=== PATIENT | male | born 1950 | race Caucasian/White ===

== ENCOUNTER → 2017-02-19 | Outpatient (CLI) | payer MEDICARE | END | disposition home or self-care (01) | LOC: GT 09:47 → LAB.O 09:47 → EDSTATUS 10:09 | PROVIDERS: ATTEND Internal Medicine | DX: J44.9 Chronic obstructive pulmonary disease, unspecified (principal); R09.02 Hypoxemia ==

== ENCOUNTER → 2017-02-23 | Outpatient (CLI) | payer MEDICARE | END | disposition home or self-care (01) | LOC: LAB.O 08:38 → GT 08:38 → EDSTATUS 10:49 | PROVIDERS: ATTEND Internal Medicine | DX: R13.0 Aphagia (principal); N39.0 Urinary tract infection, site not specified; B99.9 Unspecified infectious disease ==

== ENCOUNTER 2017-02-28 16:48 | Inpatient (IN) | payer MEDICARE ==
[2017-02-28] MEDS ORDERED: levoFLOXacin 750MG IV 750 MG in PREMIX BAG 1 BAG IVPB ONE (17:30)
[2017-02-28] MEDS ORDERED: SODIUM CHLORIDE 0.9% 1000ML 1,000 ML IVS PRN (17:30)
[2017-02-28] MEDS ORDERED: CEFEPIME 2 GM in SODIUM CHL 0.9% 50ML MIN-BAG+ 50 ML IVPB ONE (17:30)
[2017-02-28] MEDS ORDERED: LINEZOLID IV 600 MG in PREMIX BAG 1 BAG IVPB ONE (17:30)
[2017-02-28] MEDS ORDERED: CEFEPIME 2 GM VIAL IVPB ONE ×2 (17:58→23:24)
[2017-02-28] MEDS ORDERED: SODIUM CHL 0.9% 50ML MIN-BAG+ 50 ML IVPB ONE ×2 (17:58→23:24)
--- NOTE | 2017-02-28 18:21 | ED.PDOC ---
History of Present Illness - General Chief Complaint: Neuro Symptoms/Deficits Stated Complaint: altered mental status Time Seen by Provider: 02/28/17 17:29 Source: shelter records Exam Limitations: clinical condition - History of Present Illness Initial Comments: PT WAS SENT TO ER FOR EVALUATION AND TREATMENT OF RLL ASPIRATION PNEUMONIA AND AMS. HPI AND ROS LIMITED DUE TO PTS MENTAL STATUS. Timing/Duration: unsure Severity: moderate Allergies/Adverse Reactions: Allergies NO KNOWN ALLERGY Allergy (Verified 02/28/17 17:00) Review of Systems - Review of Systems Constitutional: States: see HPI EENTM: States: see HPI Respiratory: States: see HPI Cardiology: States: see HPI Gastrointestinal/Abdominal: States: see HPI Genitourinary: States: see HPI Musculoskeletal: States: see HPI Skin: States: see HPI Neurological: States: see HPI Endocrine: States: see HPI Hematologic/Lymphatic: States: see HPI Past Medical History (General) - Patient Medical History Hx Dementia: Yes Hx of COPD: Yes Hx Diabetes: Yes Hx Gastroesophageal Reflux: Yes Other Surgeries:: RIGHT BKA, LEFT AKA - Vaccination History Immunizations Comment: unknown - Social History Hx Tobacco Use: No Hx Alcohol Use: No Hx Substance Use: No Hx Substance Use Treatment: No Hx Depression: No - Activities of Daily Living Halfway/Assisted Living (if applicable):: [facility] Agency (if applicable):: None - Female History Patient is a Female of Child Bearing Age (10 -59 yrs old): No Patient : No Family Medical History - Family History Mother Family History: Unknown Physical Exam - Physical Exam General Appearance: Emaciated, Frail, No apparent distress Ears, Nose, Throat: hearing grossly normal Neck: normal inspection Respiratory: rhonchi - DIFFUSE Cardiovascular/Chest: regular rate, rhythm, no murmur Gastrointestinal/Abdominal: non tender, soft Back Exam: normal inspection Extremity: deformity - RIGHT BKA, LEFT AKA Neurologic: alert - CONFUSED Skin Exam: normal color, warm/dry Progress - EKG/XRAY/CT EKG: Sinus - 77BPM, NL AXIS, QTC 538MS, no ST T wave changes Xray Comments: RLL PNEUMONITIS PER RAD Departure - Departure Clinical Impression: Aspiration pneumonia, Acute confusion due to infection Disposition: Admit Patient Condition: Fair Departure Forms: ED Discharge - Pt. Copy, Patient Portal Self Enrollment Decision To Admit - Decistion To Admit Decision to Admit Reason: Admit from ER Decision to Admit Date: 02/28/17 - CASE DISCUSSED WITH MANJIT BLACKMON NP WHO AGREES TO ADMIT Decision to Admit Time: 19:21
--- NOTE | 2017-02-28 20:25 | HP ---
SUPERVISING PHYSICIAN: Parth Richardson MD CHIEF COMPLAINT: Altered mental status. HISTORY OF PRESENT ILLNESS: Mr. Hays is a 66-year-old, male patient resident of [facility]. He was initially sent to the Emergency Department for evaluation and treatment of a right lower lobe aspiration pneumonia that was noted on x-ray today and he also was noted to have acute mental status change. In initially in the Emergency Department, he was quite confused, but on examination at the time I was able to see the patient, he was near his baseline status. He does have a lengthy history. Initially, 4 to 5 years previously, he was treated for throat cancer with radiation and chemotherapy and he was treated to cure. At that time, he was living by himself with some caretakers who were not helping the patient as he is diabetic and as bilateral lower extremity amputations secondary to complications from diabetes. He ended up going to the Emergency Room within the last 3 to 4 weeks as he was having deterioration in his health and was found to have a right lower lobe pneumonia. He was then put in Intensive Care Unit and actually had to be intubated at some point. He was treated and improved clinically and was discharged to [facility] in [place] as he has a friend who is his power of estate attorney who lives in [place]. He had been in [facility] for about 1-1/2 weeks to today at which time an x-ray was repeated showing he had a continued right lower lobe pneumonia, which was noted to be aspiration per radiology interpretation. The patient also initially presented with some mild confusion. It also noted that his aspiration noted was first noted at [facility] by swallow study that confirmed he was having aspiration, at which point he was given a PEG tube and taken off all oral intake. His laboratory studies today showed normal white count of 6.1, hemoglobin 12.4, hematocrit 37.3, without left shift on differential. Chemistries did show a significantly low sodium of 122 with BUN 16, creatinine less than 0.04 with serum osmolality 246. Liver functions within normal limits. Troponin 0.05. BNP was within normal limits at 93. Glucose 91. Given his current symptomatology of acute mental status change with the low sodium and concerns for continued treatment for possible failure of recently being treated for right lower lobe pneumonia from aspiration, the patient will now be admitted to the Medical/Surgical Floor for further treatment. Prior to admission from the Emergency Room, he was started on antibiotic coverage to include vancomycin, Levaquin and cefepime, again, for concerns of an aspiration pneumonia, healthcare acquired, and possible pseudomonas as the patient had been previously intubated. PAST MEDICAL HISTORY: Limited from medical records and the patient's lack of knowledge of full history. 1. Type 2 diabetes mellitus currently on oral therapy. 2. History of previous throat cancer, treated to cure within the last 5 years. 3. History of recently being treated for right lower lobe aspiration pneumonia. PAST SURGICAL HISTORY: 1. Bilateral lower extremity amputation with [id number]-djx-calr amputation on the left and nwigx-zce-zbap amputation on the right. 2. Recent PEG tube placement. HOME MEDICATIONS: Please refer to electronic medical record for updated list from [facility] for current medications. ALLERGIES: NO KNOWN DRUG ALLERGIES. FAMILY HISTORY: Significant for heart disease, cancers. SOCIAL HISTORY: The patient is previously from [place] having recently moved to [facility]. He is disabled. He does have a history of smoking 1 to 2 packs per day having quit with his recent diagnosis of throat cancer. He denies any alcohol or illicit drug use. REVIEW OF SYSTEMS: CONSTITUTIONAL: As noted in history of present illness, initial acute mental status change and some confusion on admission. HEENT: Denies nasal congestion, ear pain. RESPIRATORY: Denies shortness of breath, cough, hemoptysis. CARDIOVASCULAR: As noted in history of present illness, acute mental status change, but denies any recent syncopal episodes. GASTROINTESTINAL: Positive for PEG tube placement. Denies nausea or vomiting or diarrhea. GENITOURINARY: Denies dysuria, hematuria, or other urinary symptoms. MUSCULOSKELETAL: He notes that he has some chronic phantom pains in both extremities from the amputations and has had some issues with possible infection of the lower stump. NEUROLOGIC: As noted in history of present illness, acute mental status change on admission with some confusion, showing improvement prior to admission to the Medical/Surgical Floor. PHYSICAL EXAMINATION: VITAL SIGNS: Temperature on admission 98.4. Pulse 80. Blood pressure 123/74. Respirations 20. Saturation 98% on room air. Admission weight 47.5 kg. GENERAL: The patient is very thin, appears to be somewhat malnourished, emaciated, frail, but appears to be in no acute distress. He is alert and very conversive on assessment. HEENT: Tympanic membranes clear bilaterally. Oropharynx is pink, mucous membranes are dry. No lesions noted. NECK: No jugular venous distention noted. CHEST: Lungs clear, diminished towards the bases. CARDIOVASCULAR: Regular rate and rhythm without any appreciable murmurs, gallops, or rubs. ABDOMEN: Soft, thin, nontender. Positive bowel sounds. EXTREMITIES: Right utjai-uqz-ttbb amputation, left zyyxi-suk-toxv amputation. NEUROLOGIC: The patient is alert and able to answer most of the questions on my examination. There were no notable neurological deficits. Cranial nerves II- XII are grossly intact. Facial features are symmetrical. Extraocular movements are within normal limits. INTEGUMENT: Skin warm and dry with some healing lesions to both bilateral extremities where amputations were performed. LABORATORY: White count 6.1, hemoglobin 12.4, hematocrit 36.3, platelet count 301,000, differential without shift. Urinalysis pending. Sodium low. Potassium normal at 4.6, BUN 16, creatinine less than 0.04. Glucose 89, serum osmolality 246. Liver functions within normal limits. Troponin 0.05, BNP 93. RADIOLOGY: EKG showed a sinus rhythm with no ST-T wave changes. X-ray showed a right lower lobe pneumonitis per radiology interpretation. ASSESSMENT: 1. Right lower lobe pneumonitis as noted on recent radiographic studies with a history of recently being treated at [facility] within the last month for similar diagnosis, felt to be healthcare acquired with concerns for aspiration pneumonia with the patient having been started on a PEG tube. 2. Acute mental status change on admission, unknown etiology, suspect possibly related to some dehydration that was short in duration as the patient was much more alert at time of admission. 3. History of throat cancer treatment to cure within the last 5 years. 4. History of chronic obstructive pulmonary disease in a chronic smoker with exacerbation secondary to aspiration pneumonia as noted on previous radiographic studies. 5. Type 2 diabetes mellitus on insulin, poorly controlled with complications resulting in bilateral lower extremity amputations. 6. Moderate hyponatremia, likely contributing to some of his confusional state, possibly secondary to poor nutritional intake from NG tube and excessive free water from daily PEG tube cleanings and flushings. PLAN: The patient will be admitted to the Medical/Surgical Floor for continued treatment and evaluation with antibiotics having been started in the Emergency Department to include Levaquin, vancomycin and cefepime. We will continue with aggressive antibiotic therapy until we can get some records from [facility] for comparison and repeat a chest x-ray in the morning. He will provided IV fluids, bronchodilators as needed and we will await a sputum if he is able to produce one to further target antibiotic therapy. We will get a nutritional consultation in regards to his scheduled feedings to help assist with his nutritional needs. Anticipate his length of stay to be 2 to 3 days. Until discharge, we will continue to monitor the patient closely and treat appropriately. #[id number] [facility]
[2017-02-28] MEDS ORDERED: VANCOMYCIN HCL INJ 1,000 MG VIAL IVPB ONE (21:00)
[2017-02-28] MEDS ORDERED: SODIUM CHLORIDE 0.9% 250ML 250 ML ONE (21:18)
[2017-02-28] MEDS ORDERED: SODIUM CHLORIDE 0.9% (FLUSH) 10 ML SYG IV PRN (21:32)
[2017-02-28] MEDS ORDERED: ACETAMINOPHEN 325 MG TAB PO PRN (21:32)
[2017-02-28] MEDS ORDERED: DEXTROSE 50% 25 GM/50 ML SYG IV PRN (21:32)
[2017-02-28] MEDS ORDERED: GLUCAGON INJ 1 MG VIAL SUBCU PRN (21:32)
[2017-02-28] MEDS ORDERED: ALBUTEROL SULFATE 2.5 MG/3 ML VIAL NEB PRN (21:32)
[2017-02-28] MEDS ORDERED: IV SET AND CAP CHANGE INJ INJ SCH (22:00)
[2017-03-01] MEDS: CEFEPIME 2 GM in SODIUM CHL 0.9% 50ML MIN-BAG+ 50 ML IVPB SCH ×2 (00:29→05:47)
[2017-03-01] MEDS: SODIUM CHLORIDE 0.9% 1000ML 1,000 ML IVS PRN ×2 (05:27→19:08)
[2017-03-01] MEDS ORDERED: SODIUM CHL 0.9% 50ML MIN-BAG+ 50 ML IVPB ONE (05:45)
[2017-03-01] MEDS ORDERED: CEFEPIME 2 GM VIAL IVPB ONE (05:45)
--- NOTE | 2017-03-01 07:29 | RAD ---
EXAM: Frontal chest X-ray obtained. CLINICAL INDICATION: Pneumonia COMPARISON: None FINDINGS: There is slight blunting of the right costophrenic angle. There is no focal airspace consolidation, left pleural effusion or pneumothorax. The cardiomediastinal silhouette and pulmonary vasculature appear within normal limits, given the technique. Visualized osseous structures appear intact and grossly unremarkable, given the nondedicated imaging. IMPRESSION: 1. No radiographic evidence for acute cardiopulmonary disease process. 2. Small right pleural effusion versus pleural thickening. Electronically signed by: Killian Francis MD 03/01/2017 7:28 AM CDT
[2017-03-01] MEDS: ALBUTEROL SULFATE 2.5 MG/3 ML VIAL NEB SCH ×4 (08:05→20:36)
[2017-03-01] MEDS ORDERED: SOD CHL 3% *HYPERTONIC* 500ML 300 ML IVS ONE (08:25)
[2017-03-01] MEDS: INSULIN LISPRO 100 UNITS/ML PEN SUBCU SCH ×4 (08:53→21:04)
[2017-03-01] MEDS ORDERED: SODIUM CHLORIDE 0.9% (FLUSH) 10 ML SYG IV SCH (09:00)
[2017-03-01] MEDS ORDERED: levoFLOXacin 500MG IV 500 MG in PREMIX BAG 1 BAG IVPB SCH (21:00)
--- NOTE | 2017-03-02 01:32 | PCM.CORE ---
Physician DVT/VTE - Nurse DVT Assessment & Total Each Risk Factor Represents 3 Points: Medical PT with Hx of DC, CHF, Severe infection/sepsis Each Risk Factor Represents 2 Points: Age 60-74, Malignancy (present/past), Confined to bed >72 hours Each Risk Factor Represents 1 Point: Medical PT at Bed Rest Each Risk Factor is 1 Point: Serious Lung disease (pnemonia <1month, COPD, emphysema,etc) DVT Assessment Score: 11 - 5 or more Very High Risk Treatments: Early Ambulation * - not option due to blka Pharmacological: Enoxaparin 40mg SQ Daily
[2017-03-02] MEDS ORDERED: ENOXAPARIN SODIUM 40 MG/0.4 ML SYG SUBCU SCH (02:00)
[2017-03-02] MEDS: SODIUM CHLORIDE 0.9% 1000ML 1,000 ML IVS PRN ×3 (06:17→19:47)
--- NOTE | 2017-03-02 07:24 | RAD ---
EXAM DESCRIPTION: Chest,1 View CLINICAL HISTORY: Aspiration pneumonia FINDINGS/ IMPRESSION: Comparison 03/01/2017. No significant interval change Faint infiltrate in the right mid lung, interstitial pneumonitis. Minimal opacity right costophrenic angle. There is blunted costophrenic angle which could be pleural fluid or pleural thickening. The left lung is clear Normal heart size with mildly tortuous aorta Electronically signed by: Deric Fernández MD 03/02/2017 7:23 AM CDT
--- NOTE | 2017-03-02 07:53 | PN ---
SUPERVISING PHYSICIAN: Parth Richardson MD DATE: 03/01/17 SUBJECTIVE: The patient is doing better today. He is back to his baseline mental status according to his friend and he feels much more alert today. He remains afebrile. OBJECTIVE: VITAL SIGNS: Temperature 98.0. Pulse 74. Blood pressure 120/71. Respirations 18. O2 saturation 98% on room air. I&Os not well monitored as he is incontinent. CHEST: Lungs clear bilaterally with just some decreased sounds noted towards the posterior aspects bilaterally. No rhonchi or wheezing noted. HEART: Regular rate and rhythm. ABDOMEN: Thin, soft, nontender. EXTREMITIES: No cyanosis, clubbing or edema. Bilateral lower extremity amputation sites show some irritation, but no obvious infection. NEUROLOGIC: Alert and oriented times three. He converses without any difficulty. There are no notable neurologic deficits. LABORATORY: White count remains normal at 6.1, hemoglobin 12, hematocrit 35.9, platelet count 250,000. Differential remains without a left shift. Chemistries show sodium 120 this morning with BUN 14, creatinine less than 0.4. Glucose 64 to 90. Serum osmolality 240, calcium 8.1. MICROBIOLOGY: Sputum culture has not been submitted yet. He did have blood cultures done, two, negative. RADIOLOGY: Repeat chest x-ray today per radiology interpretation, single view, shows no radiographic evidence of acute cardiopulmonary disease. There is notable right small pleural effusion versus pleural thickening. ASSESSMENT: 1. History of right lower lobe pneumonitis as noted on recent radiographic studies obtained at [facility], recently treated at [facility] within the last month and was felt to be healthcare acquired with concerns for aspiration pneumonia with the patient now having a PEG tube, showing radiographic stability. The patient remains afebrile. 2. Acute mental status change on admission, likely secondary to moderate hyponatremia with the patient showing improvement with intravenous therapy. 3. History of throat cancer treatment to cure within the last 5 years with radiation and chemotherapy. 4. History of chronic obstructive pulmonary disease in a chronic smoker with exacerbation secondary to aspiration pneumonia as noted on previous radiographic studies. 5. Type 2 diabetes mellitus on insulin, presently poorly controlled with complications resulting in bilateral lower extremity amputations. 6. Moderate hyponatremia, persistent despite intravenous therapy with normal saline, likely contributing to some of his confusional state, felt to be possibly secondary to mismanagement of his free water intake from his PEG tube and nutritional status. PLAN: At this point, has shown a decrease in his sodium. Therefore, we will treat him with some hypertonic saline 3% with 300 mL to run over 6 hours with repeat BNP after completion. Once that is complete, we will continue with IV fluids with normal saline at 75 mL per hour rate. Given that he has shown no radiographic evidence this morning of pneumonia and remains afebrile with saturation 98% on room air and clinically shows to be stable, we have opted to hold his antibiotic therapy at this time for close monitor as it seems that most of his symptoms are related to hyponatremia and poor nutritional status. We are awaiting a consultation from nutritional services to assist in ongoing nutritional needs. Anticipate possible discharge tomorrow or the next day. Until then, we will continue to monitor the patient closely and treat appropriately. #[id number] [facility]
[2017-03-02] MEDS: ALBUTEROL SULFATE 2.5 MG/3 ML VIAL NEB SCH ×4 (08:40→20:31)
[2017-03-02] MEDS: INSULIN LISPRO 100 UNITS/ML PEN SUBCU SCH ×4 (09:38→21:08)
[2017-03-02] MEDS: ENOXAPARIN SODIUM 40 MG/0.4 ML SYG SUBCU SCH (12:19)
[2017-03-03] MEDS: SODIUM CHLORIDE 0.9% 1000ML 1,000 ML IVS PRN (02:18)
[2017-03-03] MEDS: INSULIN LISPRO 100 UNITS/ML PEN SUBCU SCH ×2 (07:55→12:13)
[2017-03-03] MEDS: ALBUTEROL SULFATE 2.5 MG/3 ML VIAL NEB SCH ×2 (08:39→12:20)
[2017-03-03] MEDS: ENOXAPARIN SODIUM 40 MG/0.4 ML SYG SUBCU SCH (09:02)
--- NOTE | 2017-03-03 09:42 | PN ---
SUPERVISING PHYSICIAN: Oswaldo Kelly MD DATE: 03/02/17 SUBJECTIVE: The patient is feeling better today. He is alert, he has had no nausea, vomiting, diarrhea. He has had no cough or any complaints of shortness of breath.. OBJECTIVE: VITAL SIGNS: Temperature 97.3 Pulse 82. Blood pressure 110/75. Respirations 18. O2 saturation 93% on room air. I&Os show positive balance of 470 with 1695 in and 425 out. He has had one bowel movement. Weight is 47.5 kg. GENERAL: The patient appears to be in no distress. He is alert and conversive. CHEST: Lungs clear to auscultation bilaterally with just some diminished sounds noted towards to the right posterior aspect. No rhonchi, wheezing or rales are heart.. HEART: Regular rate and rhythm. ABDOMEN: Soft, nontender. Positive bowel sounds. EXTREMITIES: Bilateral lower extremity amputations but no obvious cyanosis or edema. There are no signs of infection.in the distal portions of the stumps. NEUROLOGIC: Alert and oriented times three. He converses without any significant difficulty.. LABORATORY: White count 4.1, hemoglobin 11.7, hematocrit 34.9, platelet count 266,000. Differential shows to be within normal limits. Chemistries show continued low sodium at 128 with chloride of 98. BUN 11, creatinine less than 0.4. Glucose has been 83 to 112. Calcium 8.8. Liver functions within normal limits. MICROBIOLOGY: Blood cultures x2 show no growth at 48 hours. RADIOLOGY: Chest x-ray, single view today shows no significant change as noted per radiology interpretation. There is note of a faint infiltrate in the right mid lung, interstitial pneumonitis. Minimal opacity, right costophrenic angle. Left lung is clear. ASSESSMENT: 1. History of recent right lower lobe pneumonitis as noted on radiographic studies at [facility], having been recently treated to completion at [facility] in the last month which was felt to be healthcare acquired with initial concerns for aspiration pneumonia with the patient having a PEG tube, showing radiographic stability. The patient remains afebrile. 2. Acute mental status change on admission, felt to be secondary to moderate hyponatremia with the patient showing some improvement after initiation of intravenous therapy. 3. History of throat cancer treatment to cure within the last 5 years with radiation and chemotherapy. 4. History of chronic obstructive pulmonary disease in a chronic smoker with exacerbation secondary to aspiration pneumonia as noted on previous radiographic studies. 5. Type 2 diabetes mellitus on insulin, poorly controlled with complications resulting in bilateral lower extremity amputations. 6. Moderate hyponatremia, persistent despite hypertonic saline replacement, felt to be contributing to his initial confusional state upon admission. This could be secondary to poor management of his free water intake from.his PEG tube and nutritional status is lacking. PLAN: Will plan to control with supervisor costuming in regards to tube feedings and follow recommendations per assessment. We need to insure the patient maintains a position of 30 to 45 degrees during and after feedings to prevent aspiration and monitor caloric and free water intake closely. Anticipate possible discharge tomorrow with reevaluation clinically and repeat laboratory studies as patient continues to show no signs related to previous aspiration pneumonitis ;. Until discharge, we will follow the patient closely and treat appropriately. #[id number] [facility]
[2017-03-03 10:13] VITALS: BP 107/71; TEMP 97.7
[2017-03-03] MEDS ORDERED: NON-FORMULARY MEDICATION 1 EA MIS GT SCH (12:00)
[2017-03-03 16:53] VITALS: O2SAT 96
--- NOTE | 2017-03-05 13:22 | DS ---
SUPERVISING PHYSICIAN: Oswaldo Kelly MD DISCHARGE DIAGNOSIS: 1. History of recent right lower lobe pneumonitis as noted on radiographic studies at [facility] having recently been treated to completion at [facility] within the last month, which was felt to be healthcare acquired with initial concerns for aspiration pneumonia with the patient having a PEG tube, showing radiographic stability on admission with the patient being afebrile. 2. Acute mental status change on admission, felt to be secondary to moderate hyponatremia with the patient showing some improvement after initiation of intravenous therapy, felt to be secondary to excessive free water intake while giving PEG tube feedings. 3. History of throat cancer treatment to cure within the last 5 years with radiation and chemotherapy. 4. History of chronic obstructive pulmonary disease in a chronic smoker with exacerbation secondary to aspiration pneumonia prior to admission and noted on previous radiographic studies in the outpatient setting, stable during admission. 5. Type 2 diabetes mellitus on insulin, poorly controlled with complications resulting in bilateral lower extremity amputations. 6. Moderate hyponatremia, persistent despite hypertonic saline replacement, felt to be contributing to his initial confusional state upon admission. This is felt to be secondary to poor management of his free water intake from.his PEG tube and nutritional status is lacking. HISTORY OF PRESENT ILLNESS: Mr. Hays is a 66-year-old, male patient resident of [facility]. He was initially sent to the Emergency Department for evaluation and treatment of a right lower lobe aspiration pneumonia that was noted on x-ray the day of admission and he also was noted to have acute mental status change. In initially in the Emergency Department, he was quite confused, but on examination at the time I was able to see the patient , he was near his baseline status. He does have a lengthy history. Initially, 4 to 5 years previously, he was treated for throat cancer with radiation and chemotherapy and he was treated to cure. At that time, he was living by himself with some caretakers who were not helping the patient as he is diabetic and as bilateral lower extremity amputations secondary to complications from diabetes. He ended up going to the Emergency Room within the last 3 to 4 weeks as he was having deterioration in his health and was found to have a right lower lobe pneumonia. He was then put in Intensive Care Unit and actually had to be intubated at some point. He was treated and improved clinically and was discharged to [facility] in [place] as he has a friend who is his power of attorney general who lives in [place]. He had been in [facility] for about 1-1/2 weeks to the day of admission at which time an x-ray was repeated showing he had a continued right lower lobe pneumonia, which was noted to be aspiration per radiology interpretation. The patient also initially presented with some mild confusion. It also was noted that his aspiration noted was first noted at [facility] by swallow study that confirmed he was having aspiration, at which point he was given a PEG tube and taken off all oral intake. His laboratory studies at time fo admission showed normal white count of 6.1, hemoglobin 12.4, hematocrit 37.3, without left shift on differential. Chemistries did show a significantly low sodium of 122 with BUN 16, creatinine less than 0.04 with serum osmolality 246. Liver functions within normal limits. Troponin 0.05. BNP was within normal limits at 93. Glucose 91. Given his current symptomatology of acute mental status change with the low sodium and concerns for continued treatment for possible failure of recently being treated for right lower lobe pneumonia from aspiration, the patient was admitted to the Medical/Surgical Floor for further treatment. Prior to admission from the Emergency Room, he was started on antibiotic coverage to include vancomycin, Levaquin and cefepime, again, for concerns of an aspiration pneumonia, healthcare acquired, and possible pseudomonas as the patient had been previously intubated. He was admitted in stable condition. LABORATORY: White count on admission was 6.1, at discharge was 3.6. Platelet count 268,000, differential within normal limits. Hemoglobin and hematocrit were stable at 12.6 and 37.8 at discharge. Chemistries initially showed sodium 122 with potassium 4.6, BUN 16, creatinine less than 0.46, initial serum osmolality 246. Liver functions within normal limits. Troponin 0.05, BNP 93. TSH normal at 3.07. After treatment and at time of discharge, sodium had near normalized to 130, potassium 3.9, BUN 6, creatinine less than 0.4. Urinalysis on admission was within normal limits. MICROBIOLOGY: Blood cultures remained negative after 4 days. No sputum culture was ever collected. RADIOLOGY: Chest x-ray in the Emergency Department prior to admission per radiology interpretation showed no radiographic evidence of acute cardiopulmonary disease. There was noted of a small right pleural effusion versus pleural thickening. Repeat chest x-ray prior to discharge on 03/02/17 per radiology interpretation again showed faint infiltrate in the right mid lung and interstitial pneumonitis, minimal opacity in the right costovertebral angle. There was again noted pleural fluid or pleural thickening. Left lung was clear. HOSPITAL COURSE: Mr. Hays was admitted from the Emergency Room as noted in history of present illness for concern for aspiration pneumonia and low sodium resulting in acute mental status change. On initial presentation to the Emergency Department, he was confused, but prior to admission to the Medical/ Surgical Floor, the patient was nearly back to his baseline mental status. He remained stable and was initially started on treatment in the Emergency Department with antibiotics for concerns for underlying pneumonia as noted. However, was clinically stable and it was felt that his acute mental status change was related to his low sodium and poor nutritional intake and excessive free water intake through PEG tube feedings. He was stopped on antibiotics and continued to do well clinically as well as improved in his sodium. Scrap [employer]er consultation was completed and his nutritional intake was improved. On the date of discharge, he was back to his baseline mental status and was doing well clinically enough to be [facility]. PLAN: Mr. Hays was discharged on 03/03/17 back to [facility] to have close clinical followup with his primary care provider, Dr. Power in 5 to 7 days. He is to resume his home medications as instructed and continue his previous care plan with note of tube feedings goals to ensure good nutritional intake and avoid excessive free water while preventing dehydration and to maintain better sodium levels. He was also to be rotated on a regular basis to prevent any skin breakdown. He is to return to the hospital should he have any increase in his symptoms or worsening of his symptoms. There were no new medications prescribed at discharge. He was to continue all previous nutrition , diet with tube feeding goals of Glucerna 1.5 237 mL q.i.d. which would provide 1422 calories and 78 grams of protein. Given the patient's low sodium levels previously, limit the patient's free fluid to Glucerna plus water flushes to less than 2000 mL, preferably 1500 to 2000 mL, Glucerna included 1.5 q.i.d. will meet 50% of the water replacement if he tolerates all his tube feedings 100%. Residuals were to be checked and call physician as per their protocol. The patient's position was to be 30 to 45 degrees during and after feedings to prevent aspiration. Please return to the Emergency Room if he has any concerning symptoms. At discharge, activities were as per physical therapy if tolerated by wheelchair only and diet as above noted. Condition was stable at discharge. #[id number] [facility]
== END 2017-03-03 14:15 | disposition home or self-care (01) | DRG 177 ==
LOC: ER 16:48 → MS 20:24
PROVIDERS: ADMIT Nurse Practitioner Family; ATTEND Nurse Practitioner Family
DX: J69.0 Pneumonitis due to inhalation of food and vomit (principal); E41 Nutritional marasmus; E87.1 Hypo-osmolality and hyponatremia; E86.0 Dehydration; E11.65 Type 2 diabetes mellitus with hyperglycemia; J44.9 Chronic obstructive pulmonary disease, unspecified; Z85.01 Personal history of malignant neoplasm of esophagus; Z92.3 Personal history of irradiation; Z92.21 Personal history of antineoplastic chemotherapy; Z89.612 Acquired absence of left leg above knee; Z89.511 Acquired absence of right leg below knee; Z93.1 Gastrostomy status; Z87.891 Personal history of nicotine dependence; Z79.4 Long term (current) use of insulin; Z66 Do not resuscitate; Z68.20 Body mass index [BMI] 20.0-20.9, adult

== ENCOUNTER → 2017-04-23 | Outpatient (CLI) | payer MEDICARE | END | disposition home or self-care (01) | LOC: LAB.O 06:30 | PROVIDERS: ATTEND Internal Medicine | DX: J44.9 Chronic obstructive pulmonary disease, unspecified (principal); E11.9 Type 2 diabetes mellitus without complications; R41.81 Age-related cognitive decline; I50.9 Heart failure, unspecified | CPT/HCPCS: 36415; 80048; 80076; P9603 ==

== ENCOUNTER → 2017-05-30 | Outpatient (CLI) | payer MEDICARE | END | disposition home or self-care (01) | LOC: GT 07:54 | PROVIDERS: ATTEND Internal Medicine | DX: E11.9 Type 2 diabetes mellitus without complications (principal) | CPT/HCPCS: 36415; 83036; P9603 ==

== ENCOUNTER → 2017-06-22 | Outpatient (CLI) | payer MEDICARE | END | disposition home or self-care (01) | LOC: GT 09:02 | PROVIDERS: ATTEND Internal Medicine | DX: E87.1 Hypo-osmolality and hyponatremia (principal) ==

== ENCOUNTER → 2017-06-29 | Outpatient (CLI) | payer MEDICARE | END | disposition home or self-care (01) | LOC: GT 05:57 | PROVIDERS: ATTEND Internal Medicine | DX: E87.1 Hypo-osmolality and hyponatremia (principal) | CPT/HCPCS: 36415; 80048; P9603 ==

== ENCOUNTER → 2017-08-29 | Outpatient (CLI) | payer MEDICARE | END | disposition home or self-care (01) | LOC: GT 06:27 | PROVIDERS: ATTEND Internal Medicine | DX: E78.5 Hyperlipidemia, unspecified (principal); E11.9 Type 2 diabetes mellitus without complications ==

== ENCOUNTER → 2017-09-06 | Outpatient (CLI) | payer MEDICARE | END | disposition home or self-care (01) | LOC: GT 14:40 | PROVIDERS: ATTEND Internal Medicine | DX: J44.9 Chronic obstructive pulmonary disease, unspecified (principal); E11.9 Type 2 diabetes mellitus without complications; E87.1 Hypo-osmolality and hyponatremia ==

== ENCOUNTER → 2017-09-12 | Outpatient (CLI) | payer MEDICARE | END | disposition home or self-care (01) | LOC: GT 05:52 | PROVIDERS: ATTEND Internal Medicine | DX: E87.1 Hypo-osmolality and hyponatremia (principal); E11.9 Type 2 diabetes mellitus without complications ==

== ENCOUNTER → 2017-11-28 | Outpatient (CLI) | payer MEDICARE | END | disposition home or self-care (01) | LOC: GT 07:10 | PROVIDERS: ATTEND Internal Medicine | DX: E11.9 Type 2 diabetes mellitus without complications (principal) ==

== ENCOUNTER → 2017-12-31 | Outpatient (CLI) | payer MEDICARE | LOC: GT 06:08 | PROVIDERS: ATTEND Internal Medicine | DX: E78.5 Hyperlipidemia, unspecified (principal); E87.1 Hypo-osmolality and hyponatremia; E56.9 Vitamin deficiency, unspecified; E11.9 Type 2 diabetes mellitus without complications ==

== ENCOUNTER → 2018-02-01 | Outpatient (CLI) | payer MEDICARE | LOC: GT 06:30 | PROVIDERS: ATTEND Internal Medicine | DX: E11.9 Type 2 diabetes mellitus without complications (principal); E56.9 Vitamin deficiency, unspecified ==

== ENCOUNTER → 2018-02-27 | Outpatient (CLI) | payer MEDICARE | LOC: GT 07:39 | PROVIDERS: ATTEND Internal Medicine | DX: E11.9 Type 2 diabetes mellitus without complications (principal); E78.5 Hyperlipidemia, unspecified ==

== ENCOUNTER 2018-05-12 20:22 | Inpatient (IN) | payer MEDICARE, MEDICAID ==
--- NOTE | 2018-05-12 20:40 | ED.PDOC ---
History of Present Illness - General Chief Complaint: Respiratory Problem Stated Complaint: possible aspiration Time Seen by Provider: 05/12/18 20:32 Source: patient Exam Limitations: no limitations - History of Present Illness Initial Comments: Patient presents with increasing dyspnea for two days. He says it started yesterday. He has had an increasing cough for the last two days. He is unsure if it has been productive or not. He has a history of aspiration pneumonia. No other complaints. EMS stated that his oxygen saturations were 59%. Patient does not normally use oxygen. Timing/Duration: 24 hours Severity: moderate Improving Factors: nothing Worsening Factors: nothing Associated Symptoms: shortness of breath Allergies/Adverse Reactions: Allergies NO KNOWN ALLERGY Allergy (Verified 05/12/18 20:53) Home Medications: Ambulatory Orders Ascorbic Acid [Vitamin C] 500 mg GT BID 02/28/17 DULoxetine HCL [Cymbalta] 30 mg GT BEDTIME 02/28/17 Enoxaparin Sodium [Lovenox] 40 mg SC BEDTIME 02/28/17 Esomeprazole Magnesium [Nexium] 40 mg GT DAILY 02/28/17 Infant Foods [Water Oral] 50 ml GT .BEFORE&AFTERFEEDING 02/28/17 Insulin Aspart [Novolog Flexpen] 0 units SUBCU Q6H PRN 02/28/17 Levofloxacin [Levaquin] 500 mg GT DAILY 02/28/17 Metformin HCl 500 mg GT BID 02/28/17 Multiple Vitamins W/ Minerals [Multivitamin Adults] 1 tab GT DAILY 02/28/17 Nutritional Supplements [Glucerna 1.5 Bo] 237 ml GT .0800,1600,0000 02/28/17 Nutritional Supplements [Promod] 30 ml GT BID 02/28/17 Nystatin (Mouth-Throat) [Nystatin] 10 ml PO QID 02/28/17 Simvastatin 10 mg GT BEDTIME 02/28/17 Sodium Chloride 1 gm GT BID 02/28/17 Review of Systems - Review of Systems Constitutional: States: no symptoms reported EENTM: States: no symptoms reported Respiratory: States: see HPI Cardiology: States: no symptoms reported Gastrointestinal/Abdominal: States: no symptoms reported Genitourinary: States: no symptoms reported Musculoskeletal: States: no symptoms reported Skin: States: no symptoms reported Neurological: States: no symptoms reported Endocrine: States: see HPI Hematologic/Lymphatic: States: no symptoms reported Past Medical History (General) - Patient Medical History Hx Seizures: No Hx Stroke: No Hx Dementia: Yes Hx Asthma: No Hx of COPD: Yes Hx Congestive Heart Failure: No Hx Pacemaker: No Hx Hypertension: No Hx Diabetes: Yes Hx Gastroesophageal Reflux: Yes Hx MRSA: No - Social History Hx Tobacco Use: No Hx Alcohol Use: No Hx Substance Use: No Hx Substance Use Treatment: No Hx Depression: No Hx Physical Abuse: No Hx Emotional Abuse: No - Female History Patient : No Family Medical History - Family History Mother Family History: Unknown Physical Exam - Physical Exam General Appearance: Ill Appearing Eye Exam: bilateral normal Ears, Nose, Throat: normal ENT inspection Neck: non-tender, full range of motion, supple Respiratory: rhonchi - upper lung krishna Cardiovascular/Chest: regular rate, rhythm, no edema Gastrointestinal/Abdominal: normal bowel sounds, non tender, soft Back Exam: no CVA tenderness Extremity: other - Right BKA, Left AKA 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 Initial lactic acid was 2.6. After 1 1/2 liters NS it was 1.4. wbc 23.5. Patient has a GT but he admitted to drinking Dr. Lee today and possibly aspirating it. He was started an Ampicillin/ Sulbactam 3 grams IV x one and admitted to inpatient for aspirations pneumonia. After a breathing treatment that EMS gave him, he maintained 97% on 2L by NC. Laboratory Tests 05/12/18 05/12/18 05/12/18 20:11 20:11 20:11 WBC 23.5 H* RBC 4.74 Hgb 13.5 L Hct 41.3 L MCV 87.0 MCH 28.4 MCHC 32.6 L RDW 19.8 H Plt Count 277 MPV 9.1 Absolute Neuts (auto) Not Reportable Absolute Lymphs (auto) Not Reportable Absolute Monos (auto) Not Reportable Absolute Eos (auto) Not Reportable Neutrophils % Not Reportable Neutrophils % (Manual) 70.0 Lymphocytes % Not Reportable Lymphocytes % (Manual) 4.0 Monocytes % Not Reportable Monocytes % (Manual) 4.0 Eosinophils % Not Reportable Basophils % Not Reportable Band Neutrophils 22.0 H* Platelet Estimate Normal Normal RBC Morphology Normal rbc morph Sodium 135 Potassium 4.1 Chloride 100 L Carbon Dioxide 25 Anion Gap 14.1 BUN 27 H Creatinine 0.62 BUN/Creatinine Ratio 43.5 H Random Glucose 141 H Serum Osmolality 277.6 Lactic Acid Calcium 8.7 Total Bilirubin 0.3 AST 20 ALT 13 Alkaline Phosphatase 115 Creatine Kinase 49 CK-MB (CK-2) 3.9 CK-MB (CK-2) % Not Reportable Troponin I 0.11 H* B-Natriuretic Peptide 258.0 H* Serum Total Protein 7.5 Albumin 3.3 Globulin 4.2 H Albumin/Globulin Ratio 0.8 L 05/12/18 05/12/18 21:10 22:45 WBC RBC Hgb Hct MCV MCH MCHC RDW Plt Count MPV Absolute Neuts (auto) Absolute Lymphs (auto) Absolute Monos (auto) Absolute Eos (auto) Neutrophils % Neutrophils % (Manual) Lymphocytes % Lymphocytes % (Manual) Monocytes % Monocytes % (Manual) Eosinophils % Basophils % Band Neutrophils Platelet Estimate Normal RBC Morphology Sodium Potassium Chloride Carbon Dioxide Anion Gap BUN Creatinine BUN/Creatinine Ratio Random Glucose Serum Osmolality Lactic Acid 2.6 H* 1.4 Calcium Total Bilirubin AST ALT Alkaline Phosphatase Creatine Kinase CK-MB (CK-2) CK-MB (CK-2) % Troponin I B-Natriuretic Peptide Serum Total Protein Albumin Globulin Albumin/Globulin Ratio 05/12/18 23:22 Departure - Departure Clinical Impression: Aspiration pneumonia Disposition: Admit Patient Condition: Fair Departure Forms: ED Discharge - Pt. Copy, Patient Portal Self Enrollment Diet: other - as per hospitalist Activity: other - patient is non-ambulatory Referrals: SKYE MENDEZ [Primary Care Provider] - 1-2 Weeks Home Medications: Ambulatory Orders Ascorbic Acid [Vitamin C] 500 mg GT BID 02/28/17 DULoxetine HCL [Cymbalta] 30 mg GT BEDTIME 02/28/17 Enoxaparin Sodium [Lovenox] 40 mg SC BEDTIME 02/28/17 Esomeprazole Magnesium [Nexium] 40 mg GT DAILY 02/28/17 Foods [Water Oral] 50 ml GT .BEFORE&AFTERFEEDING 02/28/17 Insulin Aspart [Novolog Flexpen] 0 units SUBCU Q6H PRN 02/28/17 Levofloxacin [Levaquin] 500 mg GT DAILY 02/28/17 Metformin HCl 500 mg GT BID 02/28/17 Multiple Vitamins W/ Minerals [Multivitamin Adults] 1 tab GT DAILY 02/28/17 Nutritional Supplements [Glucerna 1.5 Bo] 237 ml GT .0800,1600,0000 02/28/17 Nutritional Supplements [Promod] 30 ml GT BID 02/28/17 Nystatin (Mouth-Throat) [Nystatin] 10 ml PO QID 02/28/17 Simvastatin 10 mg GT BEDTIME 02/28/17 Sodium Chloride 1 gm GT BID 02/28/17
[2018-05-12] MEDS ORDERED: SODIUM CHLORIDE 0.9% 1000ML 1,000 ML IVS ONE (21:26)
--- NOTE | 2018-05-12 21:28 | RAD ---
EXAM DESCRIPTION: Chest,1 View CLINICAL HISTORY: rhonchi, hypoxia COMPARISON: None. FINDINGS: There is consolidation at the left lung base and bilateral interstitial thickening. Atelectasis involves the right lung base. Cardiac silhouette is within normal limits. IMPRESSION: Left lung consolidation. Electronically signed by: Klever Fernandez 05/12/2018 9:27 PM CDT
[2018-05-12] MEDS ORDERED: AMPICILLIN & SULBACTAM SODIUM 3 GM in SODIUM CHL 0.9% 100ML MINI-BAG 100 ML IVPB ONE (21:32)
[2018-05-12] MEDS ORDERED: AMPICILLIN & SULBACTAM SODIUM 3 GM VIAL ONE (21:47)
[2018-05-12] MEDS ORDERED: SODIUM CHL 0.9% 100ML MINI-BAG 100 ML IVPB ONE (21:47)
--- NOTE | 2018-05-12 23:24 | HP ---
SUPERVISING PHYSICIAN: Deric Richardson MD CHIEF COMPLAINT: Shortness of breath. HISTORY OF PRESENT ILLNESS: Mr. Hays is a 67-year-old, male patient resident of [facility]. He presented to the Emergency Department secondary to increasing dyspnea over the last 48 hours. He also noted he has been having an increasing cough for the last few days but was unable to produce any significant sputum. He has a significant history including aspiration pneumonia within the last year and utilizes a G-tube for nutritional intake and apparently has per family does drink a Dr. Pepper periodically which he sometimes aspirates. On arrival by EMS, noted oxygen saturation were 59% and the patient does not normally utilize oxygen. He was brought to the Emergency Room for further evaluation and on initial laboratory studies showed he had a leukocytosis of 20,500 with an increase in bands at 22%. His chemistries showed normal electrolytes, normal liver functions. Creatinine was 0.62 He had a slightly elevated BNP at 258 but he also had a troponin that was elevated at 0.11. His initial lactic acid was 2.6, after fluids and initiation of antibiotics in the Emergency Room prior to admission had decreased to 1.4. The patient in the Emergency Room was denying any chest pain. An EKG completed showed no ST or T-wave changes. His urine was within normal limits. Radiographic studies per radiology interpretation showed on single-view chest, left lung consolidation. He was then started on protocol for pneumonia with concerns of aspiration and initially given a dose of Zosyn after blood cultures were collected, sputum was also collected and he was started on some IV fluids and found to be hemodynamically stable and therefore is now being to be admitted for of left-sided pneumonia with concerns for aspiration and health care associated pneumonia as the patient resides in a long-term care facility. He was admitted in stable condition. PAST MEDICAL HISTORY: 1. Type 2 diabetes mellitus, not currently on any medication. 2. History of previous throat cancer, treated to cure within the 5 years requiring placement of a G-tube. 3. History of recently aspiration pneumonia. PAST SURGICAL HISTORY: 1. Bilateral lower extremity amputation with [id number] amputation on the left and below-knee amputation on the right. 2. PEG tube placement. CURRENT MEDICATIONS: 1. Ibuprofen 600 mg per G-tube b.i.d. 2. Artificial tears, one drop in both eyes b.i.d. 3. Nexium 40 mg per G-tube in the morning. 4. Paxil 30 mg per G-tube at bedtime. 5. Melatonin 60 mg G-tube at bedtime. 6. foods or water, oral 50 mLs G-tube before and after feedings. 7. Sodium chloride 3 grams G-tube b.i.d. 8. Vitamin C 500 mg G-tube b.i.d. 9. Multivitamins with minerals, one tablet daily per G-tube. 10. Probiotic 1 tablet daily per G-tube. 11. Boost 100 calories Smart, tube feedings p.r.n. 12. Globally 100 mg q.i.d. 13. Glucerna 1.5 calories 237 mL 3 times a day. ALLERGIES: BACTRIM. FAMILY HISTORY: Significant for heart disease and cancer. SOCIAL HISTORY: The patient currently lives at [facility]. He is disabled. He has a history of smoking 1 to 2 packs of cigarettes per day. He quit after recently diagnosis in the last year of throat cancer. He denies any alcohol or illicit drug use. REVIEW OF SYSTEMS: CONSTITUTIONAL: Denies any mental status change, fevers or chills. HEENT: No noted nasal congestion, earache, sore throat. RESPIRATORY: As noted in history of present illness. CARDIOVASCULAR: NO reported chest pain, palpitation or syncopal episodes. GASTROINTESTINAL: History of G-tub in place. No reported nausea or vomiting or diarrhea, constipation pr administer pain. INTEGUMENT: No rashes or skin breakdown. NEUROLOGICAL: No reported ataxia, seizures, syncopal episodes or other neurological deficits. PHYSICAL EXAMINATION: VITAL SIGNS: Temperature on admission 99.6 in the Emergency Room with a pulse of 105. Blood initially was 91/58. Respirations 24 and labored. Saturation 984 on simple face mask at 10l liters. Admission weight 61.4 kg. GENERAL: The patient is ill-appearing, fairly unkempt but alert. HEENT: Tympanic membranes clear bilaterally. Oropharynx is pink and moist without any lesions. are dry. NECK: Supple, non-tender who was transferred full range of motion. No jugular venous distention. CHEST: Diffuse rhonchi heard through all lung krishna, more prominent in the right and left upper lobes. No wheezing noted. CARDIOVASCULAR: Heart tones were normal rate and rhythm with no appreciable murmurs, gallops, or rubs. ABDOMEN: Soft, nontender. Positive bowel sounds with the G-tube in place with somewhat being clean and dry. No signs of infection. EXTREMITIES: Right grhqj-mgv-ilvr amputation, left [id number] amputation. NEUROLOGIC: Cranial nerves II-XII are grossly intact. Facial features are symmetrical. Extraocular movements are within normal limits. There is no notable nystagmus. He is alert and oriented x 3. SKIN: [place], warm, dry with no lesions or rashes. There are decubiti noted. LABORATORY: CBC showed a white count of 23,500, hemoglobin 13.5, hematocrit 41.1 with platelet count of 277,000. Differential did show a left shift and bandemia with 22% bands. Initial chemistries on admission showed normal electrolytes, potassium 4.1, BUN 27, creatinine 0.62. Lactic initially was 2.6. After fluids, repeat was down to 1.4. Liver functions all showed to be within normal limits. BNP was slightly elevated at 258 with troponin being elevated at 0.11. Urinalysis was within normal limits. MICROBIOLOGY: Sputum culture is pending. Blood cultures pending. RADIOLOGY: Initial chest x-ray in the Emergency Department per radiology interpretation of single view chest showed left lung consolidation. Initial 12-lead EKG showed sinus rhythm with no ST or T-wave changes and the patient was without any complaints of chest pain. ASSESSMENT: 1. Left lower lobe pneumonia with concerns for healthcare acquired with patient living in long-term care facility and concerns for aspiration pneumonia with the patient having PEG tube. 2. Leukocytosis secondary to #1. 3. Systemic inflammatory response with leukocytosis, elevated lactic acid, bandemia and infectious source pneumonia, left lower lobe. 4. Elevated troponins with no reported chest pain, no acute changes of EKG, questionable stress response versus a non-STEMI. 5. History of chronic obstructive pulmonary disease in a chronic smoker with an exacerbation secondary to aspiration pneumonia versus healthcare acquired as noted in #1. 6. Type 2 diabetes mellitus, currently on dietary control. PLAN: We are going to admit the patient for treatment of left lower lobe pneumonia with concerns for aspiration pneumonia versus healthcare acquired. Given his history of aspiration in the past as well as residing at [facility], I will start him on vancomycin per protocol, Levaquin and Cefepime and a dose according to renal function. He will be on IV fluids with normal saline with 20 of potassium at 80 an hour until we fan resume his tube feedings. We will need to contact Madeline Staton in regards to tube feedings. We will have him on aggressive pulmonary hygiene with q.i.d. Duoneb treatments and obtain a sputum for culture and await that result to help further target antibiotic therapy. He will be on DVT prophylaxis as well as PPI for gastric protection. We will also start him on some Align per G-tube. He will be on sliding scale per protocol every 6 hours accy checks until he is resumed on his G-tube feedings. We will continue to watch her labs closely and anticipate length of stay to be 2 to 3 days. Until patient is clinically stable, we will continue to monitor and treat appropriately. I did speak with the patient with regards to his resuscitation status and he wishes to remain at [facility]. I discussed with him elevated troponin but has no chest pain and is adamant about not seeking any further treatment in regards to the troponin and does not want to be transferred at this time. Again, I did discuss with him that should he continue to show a decline and need higher level care then he will need to be transferred or he would have to change his code status and he understands this and will address accordingly. Again, Until discharge, we will continue to monitor him closely and treat appropriately. [facility][id number] [facility]
[2018-05-13] MEDS ORDERED: SODIUM CHLORIDE 0.9% (FLUSH) 10 ML SYG IV PRN (00:47)
[2018-05-13] MEDS ORDERED: DEXTROSE 50% 25 GM/50 ML SYG IV PRN (00:47)
[2018-05-13] MEDS ORDERED: GLUCAGON INJ 1 MG VIAL SUBCU PRN (00:47)
[2018-05-13] MEDS ORDERED: ALBUTEROL SULFATE 2.5 MG/3 ML VIAL NEB PRN (00:47)
[2018-05-13] MEDS ORDERED: VANCOMYCIN HCL IVPB SCH (01:00)
[2018-05-13] MEDS ORDERED: SODIUM CHLORIDE 0.9% IVPB SCH (01:00)
[2018-05-13] MEDS ORDERED: levoFLOXacin 750MG IV 750 MG in PREMIX BAG 1 BAG IVPB SCH (01:00)
[2018-05-13] MEDS ORDERED: CEFEPIME 2 GM VIAL IVPB ONE ×2 (01:31→13:49)
[2018-05-13] MEDS ORDERED: SODIUM CHL 0.9% 50ML MIN-BAG+ 50 ML IVPB ONE ×2 (01:31→13:49)
[2018-05-13] MEDS ORDERED: VANCOMYCIN HCL INJ 1,000 MG VIAL IVPB ONE ×2 (01:37→13:50)
[2018-05-13] MEDS ORDERED: SODIUM CHLORIDE 0.9% 500ML 500 ML ONE (01:37)
[2018-05-13] MEDS: IV SET AND CAP CHANGE INJ INJ SCH (01:41)
[2018-05-13] MEDS: CEFEPIME 2 GM in SODIUM CHL 0.9% 50ML MIN-BAG+ 50 ML IVPB SCH ×2 (01:41→13:58)
[2018-05-13] MEDS: IPRATROPIUM/ALBUTEROL 3 ML VIAL INH SCH ×5 (01:45→20:56)
[2018-05-13] MEDS: KCL 20 MEQ/NS 1,000 ML IVS PRN ×2 (06:00→22:01)
[2018-05-13] MEDS: INSULIN LISPRO 100 UNITS/ML PEN SUBCU SCH ×4 (06:06→22:03)
[2018-05-13] MEDS: PANTOPRAZOLE SODIUM IV 40 MG VIAL IV SCH (06:28)
--- NOTE | 2018-05-13 07:26 | RAD ---
EXAM DESCRIPTION: Chest,1 View CLINICAL HISTORY: Pneumonia FINDINGS/ IMPRESSION: Heart size normal. Atherosclerotic aorta. Vascular congestion. Basilar increased density compatible with atelectasis. Small right pleural effusion. No dense alveolar consolidation Electronically signed by: Deric Fernández MD 05/13/2018 7:25 AM CDT
[2018-05-13] MEDS ORDERED: VANCOMYCIN PER PHARMACY IVPB SCH (10:30)
[2018-05-13] MEDS ORDERED: SODIUM CHLORIDE 0.9% 250ML 250 ML ONE (13:49)
[2018-05-13] MEDS: VANCOMYCIN HCL INJ 1,000 MG in SODIUM CHLORIDE 0.9% 250ML 250 ML IVPB SCH (14:48)
--- NOTE | 2018-05-13 15:42 | PCM.CORE ---
Physician DVT/VTE - Contraindications Mechanical Device Contraindication: Treatment not indicated - Rt/Lt BKA and AKA - Nurse DVT Assessment & Total Each Risk Factor Represents 3 Points: Medical PT with Hx of MS, CHF, Severe infection/sepsis Each Risk Factor Represents 2 Points: Age 60-74, Confined to bed >72 hours Each Risk Factor is 1 Point: Obesity (BMI >25), Serious Lung disease (pnemonia < 1month, COPD, emphysema,etc) DVT Assessment Score: 9 - 5 or more Very High Risk Pharmacological: Enoxaparin 40mg SQ Daily
[2018-05-13] MEDS ORDERED: NUTRITIONAL SUPPLEMENTS GT SCH (15:45)
[2018-05-13] MEDS ORDERED: [UNRECOGNIZED DRUG - OTHER] GT SCH (15:45)
[2018-05-13] MEDS: MELATONIN 3 MG TAB GT SCH (20:19)
[2018-05-13] MEDS: GABAPENTIN 100 MG CAP GT SCH (20:19)
[2018-05-13] MEDS: ASCORBIC ACID 500 MG TAB GT SCH (20:19)
[2018-05-13] MEDS: PARoxetine HCL 20 MG TAB GT SCH (20:19)
[2018-05-13] MEDS: POLYVINYL ALCOHOL 1.4% OPHTH SOL 1 DROP BOTH_EYES SCH (20:20)
[2018-05-13] MEDS: ENOXAPARIN SODIUM 40 MG/0.4 ML SYG SUBCU SCH (20:20)
[2018-05-13] MEDS: FREE WATER GT SCH ×3 (20:35)
[2018-05-13] MEDS: GLUCERNA CAL GT SCH (20:35)
[2018-05-14] MEDS ORDERED: VANCOMYCIN HCL INJ 1,000 MG VIAL IVPB ONE ×2 (00:21→13:58)
[2018-05-14] MEDS ORDERED: SODIUM CHLORIDE 0.9% 250ML 250 ML ONE ×2 (00:21→13:58)
[2018-05-14] MEDS ORDERED: SODIUM CHL 0.9% 50ML MIN-BAG+ 50 ML IVPB ONE ×2 (00:21→13:58)
[2018-05-14] MEDS ORDERED: CEFEPIME 2 GM VIAL IVPB ONE ×2 (00:21→13:58)
[2018-05-14] MEDS: CEFEPIME 2 GM in SODIUM CHL 0.9% 50ML MIN-BAG+ 50 ML IVPB SCH ×2 (01:11→14:00)
[2018-05-14] MEDS: VANCOMYCIN HCL INJ 1,000 MG in SODIUM CHLORIDE 0.9% 250ML 250 ML IVPB SCH ×2 (02:30→14:42)
[2018-05-14] MEDS: levoFLOXacin 750MG IV 750 MG in PREMIX BAG 1 BAG IVPB SCH (04:16)
[2018-05-14] MEDS: INSULIN LISPRO 100 UNITS/ML PEN SUBCU SCH ×4 (05:47→19:57)
[2018-05-14] MEDS: FREE WATER GT SCH ×7 (05:48→20:55)
[2018-05-14] MEDS: GLUCERNA CAL GT SCH ×3 (05:48→20:17)
[2018-05-14] MEDS: PANTOPRAZOLE SODIUM IV 40 MG VIAL IV SCH (06:07)
--- NOTE | 2018-05-14 07:25 | RAD ---
EXAM DESCRIPTION: Chest,1 View CLINICAL HISTORY: pneumonia FINDINGS/ IMPRESSION: Comparison 05/13/2018 Heart size normal. Tortuous atherosclerotic aorta with ectasia. Vascular congestion and mild interstitial edema. Peribronchial thickening left perihilar with faint infiltrate medial segment left lower lobe. Small bilateral pleural effusions Electronically signed by: Deric Fernández MD 05/14/2018 7:24 AM CDT
[2018-05-14] MEDS: IPRATROPIUM/ALBUTEROL 3 ML VIAL INH SCH ×4 (07:49→19:59)
[2018-05-14] MEDS ORDERED: MULTIPLE VITAMINS W/ MINERALS 1 EA TAB GT SCH (09:00)
[2018-05-14] MEDS ORDERED: guaiFENesin ER TAB 600 MG TAB GT SCH (09:00)
[2018-05-14] MEDS: POLYVINYL ALCOHOL 1.4% OPHTH SOL 1 DROP BOTH_EYES SCH ×2 (10:00→20:53)
[2018-05-14] MEDS: guaiFENesin 100 MG/5 ML 10 ML UD GT SCH ×2 (10:00→20:54)
[2018-05-14] MEDS: GABAPENTIN 100 MG CAP GT SCH ×3 (10:00→20:54)
[2018-05-14] MEDS: ASCORBIC ACID 500 MG TAB GT SCH ×2 (10:00→20:55)
[2018-05-14] MEDS: BIFIDOBACTERIUM INFANTIS 4 MG CAP GT SCH (10:00)
--- NOTE | 2018-05-14 10:15 | PN ---
SUPERVISING PHYSICIAN: Deric Richardson MD DATE: 05/14/18 SUBJECTIVE: The patient is lying in bed watching television. He has no complaints of chest pain, nausea, vomiting, diarrhea. He is feeling much better than he has in the past couple of days. OBJECTIVE: VITAL SIGNS: T-max 24 hours 99.7. Heart rate 99. Blood pressure 153/83. Respiratory rate 18. O2 saturation 91% on 3 liters nasal cannula. RESPIRATORY: Scattered rhonchi throughout all lung krishna. Diminished at the bases. CHEST: There is equal rise and fall of the chest with inspiration and expiration. CARDIAC: Regular rate and rhythm. GASTROINTESTINAL: Abdomen is soft, nondistended, nontender. He has a gastric tube in place with scheduled tube feedings. NEUROLOGIC: Awake, alert and oriented times three. LABORATORY: WBCs have improved to 9,500 with hemoglobin 10.7 and hematocrit 32.5. Neutrophils are 84.3%. Sodium 134, potassium 3.7, chloride 101, carbon dioxide 26, BUN 19, creatinine less than 0.4. Troponin has improved to 1.23. Sputum culture is pending. Preliminary blood cultures show no growth after 24 hours. Chest x-ray shows heart size is normal, tortuous atherosclerotic aorta with ectasia, vascular congestion and mild interstitial edema, peribronchial thickening on the left perihilar with faint infiltrate medial segment of the left lower lobe, small bilateral pleural effusions. All other labs and films have been reviewed via the EMR. ASSESSMENT: 1. Left lower lobe pneumonia with concerns for healthcare acquired. The patient lives in a long-term care facility. There is also concern for aspiration pneumonia with the patient having a gastric tube. 2. Leukocytosis secondary to #1, improved. 3. Systemic inflammatory response with leukocytosis, elevated lactic acid, bandemia and infectious source pneumonia, left lower lobe. 4. Elevated troponins with no reported chest pain, no acute EKG changes and questionable stress response versus a non-ST elevation myocardial infarction. 5. History of chronic obstructive pulmonary disease in a chronic smoker with an exacerbation secondary to aspiration pneumonia versus healthcare acquired as noted in #1. 6. Type 2 diabetes mellitus, currently on dietary control. PLAN: We will continue present supportive care including antibiotics and we will monitor cultures as they become available. I will speak to Dr. Beck about the patient's elevated troponin although the patient has had no chest pain , there have also been no EKG changes and his troponin is trending downward. He also had an elevated BNP on admission of 258 and that may have contributed to the elevated troponin. Depending on Dr. 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 We will continue to monitor the patient closely and follow as needed. Dr. Richardson is the collaborating physician and available for consultation. #[id number] [facility]
[2018-05-14] MEDS: ACETAMINOPHEN 325 MG TAB PO PRN ×2 (14:01→20:55)
[2018-05-14] MEDS: ENOXAPARIN SODIUM 40 MG/0.4 ML SYG SUBCU SCH (20:53)
[2018-05-14] MEDS: MELATONIN 3 MG TAB GT SCH (20:53)
[2018-05-14] MEDS: PARoxetine HCL 20 MG TAB GT SCH (20:54)
[2018-05-14] MEDS: SODIUM CHLORIDE 0.9% (FLUSH) 10 ML SYG IV SCH (20:55)
[2018-05-15] MEDS ORDERED: SODIUM CHLORIDE 0.9% 250ML 250 ML ONE ×2 (01:08→13:43)
[2018-05-15] MEDS ORDERED: VANCOMYCIN HCL INJ 1,000 MG VIAL IVPB ONE ×2 (01:08→13:43)
[2018-05-15] MEDS ORDERED: SODIUM CHL 0.9% 50ML MIN-BAG+ 50 ML IVPB ONE ×2 (01:08→13:28)
[2018-05-15] MEDS ORDERED: CEFEPIME 2 GM VIAL IVPB ONE ×2 (01:08→13:29)
[2018-05-15] MEDS: CEFEPIME 2 GM in SODIUM CHL 0.9% 50ML MIN-BAG+ 50 ML IVPB SCH ×2 (01:11→13:30)
[2018-05-15] MEDS: VANCOMYCIN HCL INJ 1,000 MG in SODIUM CHLORIDE 0.9% 250ML 250 ML IVPB SCH ×2 (01:58→14:24)
[2018-05-15] MEDS: levoFLOXacin 750MG IV 750 MG in PREMIX BAG 1 BAG IVPB SCH (04:10)
[2018-05-15] MEDS: INSULIN LISPRO 100 UNITS/ML PEN SUBCU SCH ×3 (05:57→20:00)
[2018-05-15] MEDS: FREE WATER GT SCH ×7 (06:05→20:45)
[2018-05-15] MEDS: GLUCERNA CAL GT SCH ×3 (06:05→20:03)
[2018-05-15] MEDS: PANTOPRAZOLE SODIUM IV 40 MG VIAL IV SCH (06:30)
--- NOTE | 2018-05-15 07:38 | RAD ---
EXAM DESCRIPTION: Chest,1 View CLINICAL HISTORY: 67 years Male, pna COMPARISON: May 14, 2018 TECHNIQUE: AP portable chest. FINDINGS: Little change in the appearance of the chest with persistent normal-sized heart with tortuous aorta. Vascularity is felt to be within the limits of normal but slightly reduced interstitial markings. Very small pleural effusion and patchy infiltrate at the lateral right lung base with coarsened markings in the medial left lung base consistent with residual infiltrate. This is the same or slightly improved. IMPRESSION: Very slight improvement in the appearance of the chest. Electronically signed by: Deric Flores MD 05/15/2018 7:36 AM CDT
[2018-05-15] MEDS: IPRATROPIUM/ALBUTEROL 3 ML VIAL INH SCH ×4 (08:15→20:22)
[2018-05-15] MEDS ORDERED: POTASSIUM CHLORIDE 20 MEQ TAB PO ONE (09:41)
[2018-05-15] MEDS ORDERED: MAGNESIUM SULFATE PREMIX 2GM 2 GM in PREMIX BAG 1 BAG IVPB ONE (09:42)
[2018-05-15] MEDS ORDERED: POTASSIUM CHLORIDE ELIXIR 20 MEQ/15 ML UD GT ONE (10:00)
[2018-05-15] MEDS: GABAPENTIN 100 MG CAP GT SCH ×3 (10:02→20:45)
[2018-05-15] MEDS: ASCORBIC ACID 500 MG TAB GT SCH ×2 (10:02→20:46)
[2018-05-15] MEDS: BIFIDOBACTERIUM INFANTIS 4 MG CAP GT SCH (10:02)
[2018-05-15] MEDS: POLYVINYL ALCOHOL 1.4% OPHTH SOL 1 DROP BOTH_EYES SCH ×2 (10:02→20:44)
[2018-05-15] MEDS: guaiFENesin 100 MG/5 ML 10 ML UD GT SCH ×2 (10:02→20:50)
[2018-05-15] MEDS: SODIUM CHLORIDE 0.9% (FLUSH) 10 ML SYG IV SCH ×2 (10:03→20:48)
[2018-05-15] MEDS ORDERED: MAGNESIUM SULFATE PREMIX 2GM 50 ML IVPB ONE (10:15)
--- NOTE | 2018-05-15 11:46 | PN ---
SUPERVISING PHYSICIAN: Deric Richardson MD DATE: 05/15/18 SUBJECTIVE: The patient is sleeping. He awakens easily. He has no complaints of chest pain, nausea, vomiting, diarrhea. We discussed his discharge planning and we will plan for tomorrow if he clinically improves and his sensitivities are back on his cultures. He also has no complaints of coughing or shortness of breath. OBJECTIVE: VITAL SIGNS: Afebrile. Heart rate 87. Blood pressure 143/79. Respiratory rate 16. O2 saturation 93% on 1 liter nasal cannula. RESPIRATORY: A few scattered rhonchi throughout. No expiratory wheezing. Slightly diminished at the bases. CARDIAC: Regular rate and rhythm. GASTROINTESTINAL: Abdomen is soft, nondistended, nontender. Bowel sounds are positive. He has a gastric tube in place. NEUROLOGIC: Awake, alert and oriented times three. LABORATORY: WBCs 6,200 with a stable hemoglobin of 10.8 and hematocrit of 33.4. He continues to have a slight left shift with neutrophils at 78.9%. Sodium 133, potassium 3.5, chloride 98, carbon dioxide 27, BUN 16, creatinine 0.4, glucose 100. Calcium 9, magnesium 1.4. Preliminary sputum culture gram stain shows less than 10 epithelials, no white blood cells seen and a few gram variable bacilli. His preliminary blood cultures show no growth after 48 hours. Chest x-ray shows very slight improvement in the appearance of the chest. All other labs and films have been reviewed via the EMR. ASSESSMENT: 1. Left lower lobe pneumonia with concerns for healthcare acquired pneumonia. The patient lives in a long-term care facility. There is also some concerns for aspiration pneumonia with the patient having a gastric tube. 2. Leukocytosis secondary to #1, stabilized. 3. Systemic inflammatory response with leukocytosis, elevated lactic acid, bandemia and infectious source pneumonia, left lower lobe on admission. 4. Elevated troponin with no reported chest pain, no acute EKG changes and questionable stress response versus a non-ST elevation myocardial infarction. 5. History of chronic obstructive pulmonary disease in a chronic smoker with an exacerbation secondary to aspiration pneumonia versus healthcare acquired pneumonia as noted in #1. 6. Type 2 diabetes mellitus, currently on dietary control. PLAN: We will continue present supportive care. We will monitor cultures to assist with antibiotic therapy. We will most likely plan for discharge tomorrow. Repeat his las in the morning. I have given him some potassium supplementation as well as magnesium supplementation. I have not repeated his troponin as there is no clear evidence for troponin initially as the patient had no chest pain. His mildly elevated troponin was most likely secondary to his mild diastolic heart failure as well as his mildly elevated BNP. The patient has had no chest pain and no evidence of any EKG changes. We are continuing to encourage good pulmonary hygiene. We will continue to monitor the patient closely and treat as appropriate. #[id number] [facility]
[2018-05-15] MEDS: ENOXAPARIN SODIUM 40 MG/0.4 ML SYG SUBCU SCH (20:44)
[2018-05-15] MEDS: MELATONIN 3 MG TAB GT SCH (20:45)
[2018-05-15] MEDS: PARoxetine HCL 20 MG TAB GT SCH (20:48)
[2018-05-16] MEDS ORDERED: SODIUM CHLORIDE 0.9% 250ML 250 ML ONE (01:20)
[2018-05-16] MEDS ORDERED: SODIUM CHL 0.9% 50ML MIN-BAG+ 50 ML IVPB ONE (01:20)
[2018-05-16] MEDS ORDERED: CEFEPIME 2 GM VIAL IVPB ONE (01:21)
[2018-05-16] MEDS ORDERED: VANCOMYCIN HCL INJ 1,000 MG VIAL IVPB ONE (01:21)
[2018-05-16] MEDS: CEFEPIME 2 GM in SODIUM CHL 0.9% 50ML MIN-BAG+ 50 ML IVPB SCH (01:23)
[2018-05-16] MEDS: IV SET AND CAP CHANGE INJ INJ SCH (01:24)
[2018-05-16] MEDS: VANCOMYCIN HCL INJ 1,000 MG in SODIUM CHLORIDE 0.9% 250ML 250 ML IVPB SCH (02:17)
[2018-05-16] MEDS: INSULIN LISPRO 100 UNITS/ML PEN SUBCU SCH ×2 (03:43→05:35)
[2018-05-16] MEDS: levoFLOXacin 750MG IV 750 MG in PREMIX BAG 1 BAG IVPB SCH (04:22)
[2018-05-16] MEDS: FREE WATER GT SCH ×2 (06:02→06:03)
[2018-05-16] MEDS: GLUCERNA CAL GT SCH (06:02)
[2018-05-16] MEDS: PANTOPRAZOLE SODIUM IV 40 MG VIAL IV SCH (06:05)
--- NOTE | 2018-05-16 07:29 | RAD ---
EXAM DESCRIPTION: Chest,1 View CLINICAL HISTORY: Pneumonia FINDINGS/ IMPRESSION: Comparison 05/15/2018 Normal heart size. Tortuous atherosclerotic aorta. Increased density retrocardiac left lower lobe compatible with atelectasis or infiltrate with slightly better aeration. Stable interstitial markings in the right lung base with small effusion. Electronically signed by: Deric Fernández MD 05/16/2018 7:27 AM CDT
[2018-05-16] MEDS ORDERED: MAGNESIUM SULFATE PREMIX 2GM 2 GM in PREMIX BAG 1 BAG IVPB ONE (08:16)
[2018-05-16] MEDS: POLYVINYL ALCOHOL 1.4% OPHTH SOL 1 DROP BOTH_EYES SCH (08:40)
[2018-05-16] MEDS: BIFIDOBACTERIUM INFANTIS 4 MG CAP GT SCH (08:40)
[2018-05-16] MEDS: guaiFENesin 100 MG/5 ML 10 ML UD GT SCH (08:40)
[2018-05-16] MEDS: ASCORBIC ACID 500 MG TAB GT SCH (08:40)
[2018-05-16] MEDS: GABAPENTIN 100 MG CAP GT SCH (08:40)
[2018-05-16] MEDS ORDERED: MAGNESIUM SULFATE PREMIX 2GM 50 ML IVPB ONE (08:41)
[2018-05-16] MEDS: IPRATROPIUM/ALBUTEROL 3 ML VIAL INH SCH (08:45)
[2018-05-16] MEDS: SODIUM CHLORIDE 0.9% (FLUSH) 10 ML SYG IV SCH (08:50)
--- NOTE | 2018-05-16 10:52 | DS ---
SUPERVISING PHYSICIAN: Deric Richardson MD DISCHARGE DIAGNOSIS: 1. Left lower lobe pneumonia with concerns for healthcare acquired pneumonia. The patient lives in a long-term care facility. There is also some concerns for aspiration pneumonia with the patient having a gastric tube. 2. Leukocytosis secondary to #1, stabilized. 3. Systemic inflammatory response with leukocytosis, elevated lactic acid, bandemia and infectious source pneumonia, left lower lobe on admission. 4. Elevated troponin with no reported chest pain, no acute EKG changes and questionable stress response versus a non-ST elevation myocardial infarction. 5. History of chronic obstructive pulmonary disease in a chronic smoker with an exacerbation secondary to aspiration pneumonia versus healthcare acquired pneumonia as noted in #1. 6. Type 2 diabetes mellitus, currently on dietary control. HISTORY OF PRESENT ILLNESS: This is a 67-year-old male patient who is a resident of [facility]. He presented to the Emergency Department secondary to increasing shortness of breath that had worsened over the previous 48 hours. He also a worsening cough, but was unable to produce any significant sputum. He has a significant history including aspiration pneumonia within the last year and utilizes a G-tube for nutritional intake and per family does drink a Dr. Pepper periodically and aspiration has been a problem in the past. On admission to the Emergency Room, his O2 saturations were 59% and the patient does not normally utilize oxygen. Initially, he had a leukocytosis of 20,500 with an increase in bands at 22%. His chemistries showed normal electrolytes, normal liver functions. Creatinine was 0.62 He had a slightly elevated BNP at 258. He also had a troponin that was elevated at 0.11. His initial lactic acid was 2.6, after fluids and initiation of antibiotics, it decreased to 1.4. The patient did not have any chest pain in the Emergency Room. An EKG completed showed no ST or T-wave changes. His urinalysis was within normal limits. His chest x-ray showed a left lung consolidation. He was then started on protocol for pneumonia with concerns of aspiration and initially given a dose of Zosyn after blood cultures were collected, sputum was also collected and he was started on some IV fluids and found to be hemodynamically stable. He was admitted to the Floor for concerns for aspiration and health care associated pneumonia. He was admitted in stable condition. HOSPITAL COURSE: His antibiotic therapy was changed to vancomycin, Levaquin and cefepime. His home medications were re-started. His initial blood cultures showed no growth after 3 days. His sputum culture was positive for serratia marcescens. It showed multi-resistance, but is sensitive to Levaquin and he will be sent home on Levaquin. WBCs started at 23,500 and improved daily. Today, his WBCs are 4.9. Hemoglobin and hematocrit remained stable at about 11.1 and 32.8. Neutrophils today are 75.3%. Blood sugars remained stable between 88 and 132. Sodium is 137. He did receive some potassium supplementation yesterday, but today his potassium is 3.7. Kidney function was stable. He also had a low magnesium yesterday. It was down to 1.4. After supplementing with magnesium, it was 1.9. This morning, it was 1.7 and he will receive some magnesium supplementation prior to discharge. His troponin did come down to 1.23 on 05/14/18. I did not repeat his troponin as there was no clear evidence of for troponin testing initially as the patient had no chest pain. His mildly elevated troponin was most likely secondary to his mild diastolic heart failure as well as a mildly elevated BNP. He has had no chest pain and no evidence of any EKG changes during his inpatient stay in the hospital. Today, his chest x-ray showed stable interstitial markings in the right lung base with a small effusion. He will be discharged to [facility] today. DISCHARGE PLAN: The patient will be discharged to [facility] in stable condition. He is to resume his previous tube feedings as previously ordered by their tool maintenance worker. He is to see his primary care physician , Dr. Power, within the next one to two weeks. It may be beneficial to see his senior production manager for followup on his mildly elevated troponin as well as repeating his electrolytes including a magnesium in the next week or so. He will also be sent home on some Levaquin for five additional days. He is to resume his previous home medications including guaifenesin and a probiotic. DISCHARGE MEDICATIONS: 1. Multivitamin. 2. Glucerna. 3. Free water before and after feedings. 4. Sodium chloride tabs. 5. Nexium. 6. Vitamin C. 7. Melatonin. 8. Probiotic. 9. Boost. 10. Gabapentin. 11. Paroxetine. 12. Artificial tears. 13. Ibuprofen. 14. Align. 15. Guaifenesin. 16. Levofloxacin. #[id number] [facility]
[2018-05-16 11:50] VITALS: BP 133/78; TEMP 97.8; O2SAT 94
== END 2018-05-16 11:00 | DRG 178 ==
LOC: ER 20:22 → MS 23:23 → OBSVTOIN 23:23
PROVIDERS: ADMIT Nurse Practitioner Family; ATTEND Nurse Practitioner Acute Care
DX: J69.0 Pneumonitis due to inhalation of food and vomit (principal); E87.2 Acidosis; J44.0 Chronic obstructive pulmonary disease with (acute) lower respiratory infection; I50.32 Chronic diastolic (congestive) heart failure; J18.9 Pneumonia, unspecified organism; R74.8 Abnormal levels of other serum enzymes; E11.9 Type 2 diabetes mellitus without complications; E83.42 Hypomagnesemia; Z93.1 Gastrostomy status; F03.90 Unspecified dementia, unspecified severity, without behavioral disturbance, psychotic disturbance, mood disturbance, and anxiety; K21.9 Gastro-esophageal reflux disease without esophagitis; L89.159 Pressure ulcer of sacral region, unspecified stage; Y95 Nosocomial condition; Z66 Do not resuscitate; Z16.24 Resistance to multiple antibiotics; Z88.1 Allergy status to other antibiotic agents; Z89.612 Acquired absence of left leg above knee; Z89.511 Acquired absence of right leg below knee; Z85.89 Personal history of malignant neoplasm of other organs and systems; Z87.891 Personal history of nicotine dependence; Z79.1 Long term (current) use of non-steroidal anti-inflammatories (NSAID); Z79.4 Long term (current) use of insulin; Z79.899 Other long term (current) drug therapy

== ENCOUNTER 2018-06-17 21:04 | Inpatient (IN) | payer MEDICARE ==
[2018-06-17] MEDS ORDERED: IPRATROPIUM/ALBUTEROL 3 ML VIAL NEB ONE (21:06)
[2018-06-17] MEDS ORDERED: MEROPENEM 1 GM in SODIUM CHL 0.9% 50ML MIN-BAG+ 50 ML IVPB ONE (21:40)
[2018-06-17] MEDS ORDERED: levoFLOXacin 500MG IV 500 MG in PREMIX BAG 1 BAG IVPB ONE (21:52)
[2018-06-17] MEDS ORDERED: methylPREDNISolone SODIUM SUC 125 MG/2 ML VIAL IV ONE (21:55)
[2018-06-17] MEDS ORDERED: levoFLOXacin 500MG IV 100 ML IVPB ONE (22:03)
--- NOTE | 2018-06-17 22:08 | RAD ---
EXAM DESCRIPTION: Chest,1 View CLINICAL HISTORY: 67 years Male, hypoxia COMPARISON: AP chest May 16, 2018 FINDINGS: Exam mildly limited given that the left costophrenic angle is not included. Ill-defined bibasilar pulmonary opacities are present. Small right pleural effusion versus pleural thickening noted. No pneumothorax. There is mild interstitial septal thickening in the lung bases. Heart size is normal. Aortic atherosclerosis and tortuosity noted. Osseous structures demonstrate no acute findings. IMPRESSION: 1. Bibasilar pulmonary opacities which may reflect pulmonary edema or pneumonia. 2. Mild interstitial septal thickening in the lung bases suggestive of pulmonary edema. 3. Small right pleural effusion versus pleural thickening. Electronically signed by: Brian Gamboa MD 06/17/2018 10:08 PM CDT
--- NOTE | 2018-06-17 23:12 | ED.PDOC ---
History of Present Illness - General Chief Complaint: Respiratory Problem Stated Complaint: low O2 sats, congestion Time Seen by Provider: 06/17/18 21:05 Source: patient, family, EMS Exam Limitations: no limitations - History of Present Illness Initial Comments: the patient is a 67-year-old male presenting to the emergency room secondary to 2 days of progressive shortness of breath with cough. He has had a history of recurrent pneumonias and questionable aspiration pneumonia back from his stomach contents that are put in by the G-tube. He was last admitted here a little over a month ago for pneumonia that grew out Serratia. He has had a low-grade fever. No chest pain. By the time EMS arrived his oxygen saturations were down in the high 60s to low 70s. His lungs were coarse and wet throughout. EMS appropriately gave him oxygen, breathing treatment, and 40 of IV Lasix. By the time he arrived here his lung sounds had improved somewhat and over the next hour they did improve significantly more but there is still significant rales present. Initial blood pressure obtained here at his systolic blood pressure in the 80s which is consistent with acute pulmonary edema and sepsis. His oxygen saturations on nonrebreather have been 90-94%. We did elect to change the patient over to a BiPAP 4. Time to try and help clear the lungs up as much as possible from the pulmonary edema. The patient was diaphoretic and markedly short of breath upon arrival. He was also moderately confused. Confusion has improved significantly. He is no longer diaphoretic. He does have a history of chronic lung disease but no apparent coronary history according to him. Timing/Duration: other - 2 days Severity: severe Improving Factors: other - oxygen Worsening Factors: nothing Associated Symptoms: cough, shortness of breath Allergies/Adverse Reactions: Allergies Sulfamethoxazole w/Trimethoprim [From Bactrim] Allergy (Verified 06/17/18 21:42) Home Medications: Ambulatory Orders Ascorbic Acid [Vitamin C] 500 mg GT BID 02/28/17 Esomeprazole Magnesium [Nexium] 40 mg GT .0630 02/28/17 Infant Foods [Water Oral] 50 ml GT .BEFORE&AFTERFEEDING 02/28/17 Multiple Vitamins W/ Minerals [Multivitamin Adults] 1 tab GT DAILY 02/28/17 Nutritional Supplements [Glucerna 1.5 Bo] 237 ml GT .0600,1400,2000 02/28/17 Sodium Chloride 3 gm GT BID 02/28/17 Gabapentin 100 mg GT TID 05/13/18 Ibuprofen [Motrin] 600 mg GT BID 05/13/18 Lactobacillus Acidophilus-Pect [Eql Probiotic Acidophilus] 1 cap GT DAILY Melatonin 6 mg GT BEDTIME 05/13/18 Nutritional Supplements [Boost 100 Calorie Smart] 1 liq GT QID PRN 05/13/18 Paroxetine HCl [Paxil] 30 mg GT BEDTIME 05/13/18 Polyvinyl Alcohol [Artificial Tears] 1 drop BOTH_EYES BID 05/13/18 Bifidobacterium Infantis [Align] 4 mg GT DAILY cap 05/16/18 Levofloxacin [Levaquin] 750 mg PO DAILY #5 tablet 05/16/18 guaiFENesin 100 MG/5 ML [Robitussin] 30 ml GT BID ud 05/16/18 Review of Systems - Review of Systems Constitutional: States: diaphoresis, fever, malaise EENTM: States: no symptoms reported Respiratory: States: cough, short of breath, wheezing Cardiology: States: no symptoms reported Gastrointestinal/Abdominal: States: no symptoms reported Genitourinary: States: no symptoms reported Musculoskeletal: States: no symptoms reported Skin: States: no symptoms reported Neurological: States: other - mild delirium upon arrival Endocrine: States: no symptoms reported All other Systems: No Change from Baseline Past Medical History (General) - Patient Medical History Hx Seizures: No Hx Stroke: No Hx Dementia: No Hx Asthma: No Hx of COPD: Yes Hx Cardiac Disorders: No Hx Congestive Heart Failure: No Hx Pacemaker: No Hx Hypertension: No Hx Thyroid Disease: No Hx Diabetes: Yes Hx Gastroesophageal Reflux: Yes Hx Renal Disease: No Hx Cancer: No Hx of HIV: No Hx Hepatitis C: No Hx MRSA: No Surgical History: noncontributory - Social History Hx Tobacco Use: No Hx Alcohol Use: No Hx Substance Use: No Hx Substance Use Treatment: No Hx Depression: No Hx Physical Abuse: No Hx Emotional Abuse: No - Activities of Daily Living Penitentiary/Assisted Living (if applicable):: [place] - Female History Patient : No Family Medical History - Family History Mother Family History: Unknown Physical Exam - Physical Exam General Appearance: Alert, Frail, Ill Appearing Eye Exam: bilateral normal Ears, Nose, Throat: hearing grossly normal, normal ENT inspection Neck: full range of motion, supple Respiratory: respiratory distress, decreased breath sounds, accessory muscle use , crackles, rales, rhonchi, wheezing Cardiovascular/Chest: normal peripheral pulses, no edema, tachycardia Peripheral Pulses: radial,right: 2+, radial,left: 2+ Gastrointestinal/Abdominal: non tender - G-tube is in place, soft Rectal Exam: deferred Extremity: normal range of motion - for this patient chronically though he does have bilateral lower extremity and amputations, normal capillary refill - of his fingers Neurologic: ambulance operations supervisor II-XII nml as tested, alert, oriented x 3 - after a brief period of delirium initially Skin Exam: diaphoresis, pallor Comments: Vital Signs - 24 hr 06/17/18 06/17/18 06/17/18 21:05 21:10 21:12 Temperature 100.5 F H Pulse Rate 108 H Pulse Rate [ 111 H monitor] Respiratory 24 25 H 24 Rate Blood Pressure 80/57 [Left Arm] O2 Sat by Pulse 89 L 90 L Oximetry repeat systolic blood pressures have ranged from 105-135. Progress - Progress Progress: 06/17/18 23:21 the patient is a 67-year-old male presenting with what appears to be sepsis due to a pneumonia that likely lead to hypoxia and acute pulmonary edema. The patient arrived in near respiratory failure. The patient is doing significantly better at this point in time. The pulmonary edema appears to be clearing off with the supplemental oxygen and BiPAP. Blood and sputum cultures have been taken. The patient has been placed so far on meropenem and ciprofloxacin. Consideration could certainly be given towards the use of vancomycin depending on how the patient is progressing. He did receive 1 dose of IV Lasix with EMS upon their arrival. This should also likely help some. He has received a breathing treatment as well. The patient is still of course very high risk but does appear to be stabilizing. He has received 1 dose of IV Solu-Medrol. The patient is a diabetic and will need to be followed on his blood sugars. He is not having any chest pain or EKG changes currently worrisome for ischemia. It would not be surprising to see a small troponin bump on repeat lab work due to global hypoxia if it were rechecked. I would also not be surprised to see an elevation of the BNP on a recheck. blood pressures have improved with improved oxygenation. He will likely need to be given some fluid back over the next 24 hours in treatment of his sepsis. Admitted for care for the resolving acute pulmonary edema, sepsis and pneumonia. Critical care time spent in treatment of above processes and in plan of care was 40 minutes. - Results/Orders Results/Orders: EKG shows sinus tachycardia rate 112 bpm. Normal corrected QT interval. Normal axis. Normal R-wave progression. No acute ST segment changes concerning for ischemia. though the EKG was done after the patient was already clinically improving. Laboratory Results - last 24 hr 06/17/18 06/17/18 06/17/18 21:05 21:05 21:05 WBC 19.9 H RBC 4.66 L Hgb 14.0 Hct 43.3 MCV 93.1 MCH 30.0 MCHC 32.3 L RDW 20.0 H Plt Count 208 MPV 9.9 Absolute Neuts (auto) 18.20 H Absolute Lymphs (auto) 0.60 L Absolute Monos (auto) 1.00 H Absolute Eos (auto) 0.00 Absolute Basos (auto) 0.00 Neutrophils % 91.5 H Neutrophils % (Manual) 62.0 Lymphocytes % 3.2 L Lymphocytes % (Manual) 2.0 Monocytes % 5.1 Monocytes % (Manual) 4.0 Eosinophils % 0.1 L Basophils % 0.1 Band Neutrophils 32.0 H* Platelet Estimate Normal Poikilocytosis 1+ Anisocytosis 4+ Sodium 140 Potassium 4.1 Chloride 102 Carbon Dioxide 27 Anion Gap 15.1 BUN 37 H Creatinine 0.58 L BUN/Creatinine Ratio 63.8 H Random Glucose 121 H Serum Osmolality 289.3 Lactic Acid 1.5 Calcium 9.2 Total Bilirubin 0.4 AST 24 ALT 18 Alkaline Phosphatase 107 Creatine Kinase 41 CK-MB (CK-2) 2.7 CK-MB (CK-2) % Not Reportable Troponin I 0.02 B-Natriuretic Peptide 104.0 H Serum Total Protein 7.3 Albumin 3.7 Globulin 3.6 H Albumin/Globulin Ratio 1.0 L Departure - Departure Clinical Impression: Respiratory distress Sepsis Qualifiers: Sepsis type: sepsis due to unspecified organism Qualified Code(s): A41.9 - Sepsis, unspecified organism Pneumonia Qualifiers: Pneumonia type: due to unspecified organism Laterality: bilateral Lung location : unspecified part of lung Qualified Code(s): J18.9 - Pneumonia, unspecified organism Pulmonary edema Qualifiers: Chronicity: acute Qualified Code(s): J81.0 - Acute pulmonary edema Disposition: Admit Patient Referrals: SKYE MENDEZ [Primary Care Provider] - 1-2 Weeks Home Medications: Ambulatory Orders Ascorbic Acid [Vitamin C] 500 mg GT BID 02/28/17 Esomeprazole Magnesium [Nexium] 40 mg GT .0630 02/28/17 Infant Foods [Water Oral] 50 ml GT .BEFORE&AFTERFEEDING 02/28/17 Multiple Vitamins W/ Minerals [Multivitamin Adults] 1 tab GT DAILY 02/28/17 Nutritional Supplements [Glucerna 1.5 Bo] 237 ml GT .0600,1400,199902/28/17 Sodium Chloride 3 gm GT BID 02/28/17 Gabapentin 100 mg GT TID 05/13/18 Ibuprofen [Motrin] 600 mg GT BID 05/13/18 Lactobacillus Acidophilus-Pect [Eql Probiotic Acidophilus] 1 cap GT DAILY Melatonin 6 mg GT BEDTIME 05/13/18 Nutritional Supplements [Boost 100 Calorie Smart] 1 liq GT QID PRN 05/13/18 Paroxetine HCl [Paxil] 30 mg GT BEDTIME 05/13/18 Polyvinyl Alcohol [Artificial Tears] 1 drop BOTH_EYES BID 05/13/18 Bifidobacterium Infantis [Align] 4 mg GT DAILY cap 05/16/18 Levofloxacin [Levaquin] 750 mg PO DAILY #5 tablet 05/16/18 guaiFENesin 100 MG/5 ML [Robitussin] 30 ml GT BID ud 05/16/18 Decision To Admit - Decistion To Admit Decision to Admit Reason: Medical Nature Decision to Admit Date: 06/17/18 Decision to Admit Time: 23:26
[2018-06-17] MEDS ORDERED: IBUPROFEN 200 MG TAB GT ONE (23:19)
[2018-06-17] MEDS ORDERED: SODIUM CHL 0.9% 50ML MIN-BAG+ 50 ML IVPB ONE (23:20)
[2018-06-17] MEDS ORDERED: MEROPENEM 1 GM VIAL IVPB ONE (23:20)
--- NOTE | 2018-06-17 23:57 | HP ---
SUPERVISING PHYSICIAN: Deric Richardson MD CHIEF COMPLAINT: Shortness of breath. HISTORY OF PRESENT ILLNESS: This is a 67-year-old male patient who came from the residential with shortness of breath and low O2 saturations. Apparently this has been going on progressively for the last couple of days. It is associated with a cough. He was recently in the hospital approximately a month ago with healthcare associated pneumonia. It appears at that time he had a serratia marcescens pneumonia which had a lot of resistance, but he was placed on antibiotics and was eventually able to be discharged back to the residential. At this time when he came to the Emergency Room, he was given some Lasix , a breathing treatment and placed on a non-rebreather initially. O2 saturations were in the 60s and 70s and so eventually he was placed on noninvasive ventilation. In the Emergency Room, he was given Merrem, ibuprofen through his G-tube and 60 mg of methylprednisolone. He was also given some Lasix initially, as stated before. His labs came back and showed he had a white count of 19,000 with 32% bands. He had a pretty much unremarkable chemistry other than the fact that his BUN was elevated at 37. Lactate was 1.5 , BNP 104. Chest x-ray was consistent with bibasilar pneumonia. Due to the above workup, the patient was referred for admission. Initially in the Emergency Room, his systolic blood pressure was 80/57. This improved to 149/56 and he had several blood pressures in the 120s. Once he got to the Floor, however, his systolic blood pressure was in the 60s. I was called by the nurses and came to evaluate the patient. His blood pressure was 67/49. Upon initial examination, the patient was pretty lethargic. He did awaken and follow commands without difficulty. However, was pretty much staring into space. I ordered a liter of saline stat at that time as well as arterial blood gas. The arterial blood gas showed pH 7.36, PCO2 49, PO2 84, bicarb 26.7, base excess of 1.2 with O2 saturation 96%. He was placed back on BiPAP was taken off of it coming from the Emergency Room. His O2 saturations were in the mid- 80s prior to be placed on the BiPAP. They did improve to 94% on noninvasive ventilation. With the bolus of normal saline, his blood pressure significantly improved to systolic in one-teens. He does seem more alert after the improvement in his blood pressure as well. PAST MEDICAL HISTORY: 1. Type 2 diabetes mellitus. 2. History of throat cancer. 3. Aspiration pneumonia. 4. Recent admission for pneumonia with serratia marcescens. PAST SURGICAL HISTORY: 1. Bilateral lower extremity amputations with [id number] amputation on the left and [id number] amputation on the right. 2. PEG tube placement. CURRENT MEDICATIONS: Please see medication reconciliation list in the computer , it has not been reconsolidated as of yet. ALLERGIES: BACTRIM. FAMILY HISTORY: Significant for heart disease and cancer. SOCIAL HISTORY: The patient lives at [facility]. He is disabled. He has a history of smoking 1 to 2 packs per day, but quit after his throat cancer. No alcohol, no illicit drugs. REVIEW OF SYSTEMS: The patient is on BiPAP, so he is unable to fully speak at this time. Please see history of present illness. PHYSICAL EXAMINATION: VITAL SIGNS: Blood pressure now 111/67. Heart rate 88. Respiratory rate 24. Temperature 99.1. Oxygen saturation 94%. GENERAL: Mr. Hays is an 67-year-old male patient, critically ill at this time. HEENT: Normocephalic, atraumatic. Pupils are equal and reactive. Nose and mouth are not examined due to the fact that he has a full facemask and IPPB in place. NECK: Supple. Midline trachea. No visible jugular venous distention. CHEST: Symmetrical with equal rise and fall of the chest with inspiration and expiration. Lung sounds are coarse bilaterally. CARDIOVASCULAR: Regular rate and rhythm. Normal S1, S2. ABDOMEN: Soft. Positive bowel sounds. He has a PEG tube in place. GENITOURINARY: Deferred. He has a Depends diaper in place. EXTREMITIES: Lower extremities with bilateral amputations noted. Capillary refill is delayed at about 3 to 4 seconds. Radial pulses are palpable, a little bit thready prior to the bolus. They are improved after the bolus. LABORATORY: Labs and films are as discussed in history of present illness. ASSESSMENT: 1. Acute hypoxic respiratory failure. 2. Septic shock secondary to healthcare associated pneumonia. 3. Healthcare associated pneumonia, most recently which grew out serratia marcescens with multi-drug resistance. 4. Likely acute kidney injury based on his elevated BUN. His creatinine is normal, however, he really does not have a lot of muscle mass either. 5. Altered mental status, likely secondary to metabolic encephalopathy. PLAN: 1. At this time, I will continue the NIPPB. He seems to be benefiting quite a bit from this. I do not think he has congestive heart failure based on the fact that his BNP was only 104. However, given his extensive pneumonia, this is likely the cause of his respiratory failure. 2. His blood pressure is improved after IV fluid bolus. The patient is pretty small, so I have ordered a liter of fluid which seems to have improved his blood pressure and we will give additional fluids as needed as well. Cultures have already been drawn in the Emergency Room and IV antibiotics initiated. He got Merrem in the Emergency Room and I have added vancomycin as well. 3. Sputum culture has been obtained as well. We will monitor this and adjust antibiotics accordingly. 4. After the IV fluid bolus, I have ordered continuous fluids as well. We will monitor his BUN which is likely indicative of his acute kidney injury. 5. His altered mental status seems to have somewhat improved with improvement in his blood pressure. We will continue to monitor this as well. Critical care time spent in evaluation and management of the patient, coordination of care with respiratory nursing staff, chart review, short order cook, as well as documentation was 60 minutes. Once again, Dr. Richardson is the collaborating physician. #[id number] [facility]
[2018-06-18] MEDS ORDERED: MORPHINE SULFATE INJ 10 MG/ML VIAL IV PRN (00:20)
[2018-06-18] MEDS ORDERED: VANCOMYCIN HCL IVPB SCH (00:30)
[2018-06-18] MEDS ORDERED: SODIUM CHLORIDE 0.9% IVPB SCH (00:30)
[2018-06-18] MEDS ORDERED: IV SET AND CAP CHANGE INJ INJ SCH (00:30)
[2018-06-18] MEDS ORDERED: SODIUM CHLORIDE 0.9% 500ML 500 ML ONE (01:42)
[2018-06-18] MEDS ORDERED: VANCOMYCIN HCL INJ 1,000 MG VIAL IVPB ONE ×2 (01:43→14:07)
[2018-06-18] MEDS ORDERED: SODIUM CHLORIDE 0.9% 1000ML 1,000 ML ONE ×2 (01:45→16:16)
[2018-06-18] MEDS: SODIUM CHLORIDE 0.9% (FLUSH) 10 ML SYG IV PRN ×2 (01:46→06:10)
[2018-06-18] MEDS ORDERED: SODIUM CHLORIDE 0.9% 1000ML 1,000 ML IVS ONE (01:46)
[2018-06-18] MEDS: IPRATROPIUM/ALBUTEROL 3 ML VIAL INH SCH ×6 (01:55→20:11)
[2018-06-18] MEDS: ENOXAPARIN SODIUM 40 MG/0.4 ML SYG SUBCU SCH (02:06)
[2018-06-18] MEDS: methylPREDNISolone SODIUM SUC 40 MG/ML VIAL IV SCH ×4 (02:11→18:26)
[2018-06-18] MEDS: PANTOPRAZOLE SODIUM IV 40 MG VIAL IV SCH (02:30)
[2018-06-18] MEDS: LACTATED RINGERS 1,000 ML IVS PRN ×2 (04:08→17:48)
[2018-06-18] MEDS ORDERED: SODIUM CHL 0.9% 50ML MIN-BAG+ 50 ML IVPB ONE ×2 (09:34→18:22)
[2018-06-18] MEDS ORDERED: MEROPENEM 1 GM VIAL IVPB ONE ×2 (09:34→18:22)
[2018-06-18] MEDS: MEROPENEM 1 GM in SODIUM CHL 0.9% 50ML MIN-BAG+ 50 ML IVPB SCH ×2 (10:47→18:26)
[2018-06-18] MEDS ORDERED: SODIUM CHL 0.9% 250ML (AVIVA) 250 ML IVPB ONE (14:07)
[2018-06-18] MEDS: SODIUM CHL 0.9% IVPB SCH (14:31)
[2018-06-18] MEDS: VANCOMYCIN HCL IVPB SCH (14:31)
[2018-06-19] MEDS: IPRATROPIUM/ALBUTEROL 3 ML VIAL INH SCH ×7 (00:18→23:30)
[2018-06-19] MEDS: methylPREDNISolone SODIUM SUC 40 MG/ML VIAL IV SCH ×4 (00:27→18:09)
[2018-06-19] MEDS: PANTOPRAZOLE SODIUM IV 40 MG VIAL IV SCH (00:28)
[2018-06-19] MEDS: ENOXAPARIN SODIUM 40 MG/0.4 ML SYG SUBCU SCH (00:29)
[2018-06-19] MEDS ORDERED: SODIUM CHL 0.9% 50ML MIN-BAG+ 50 ML IVPB ONE ×3 (01:18→17:40)
[2018-06-19] MEDS ORDERED: MEROPENEM 1 GM VIAL IVPB ONE ×3 (01:19→17:41)
[2018-06-19] MEDS ORDERED: SODIUM CHL 0.9% 250ML (AVIVA) 250 ML IVPB ONE ×3 (01:19→14:16)
[2018-06-19] MEDS ORDERED: VANCOMYCIN HCL INJ 1,000 MG VIAL IVPB ONE ×3 (01:19→14:16)
[2018-06-19] MEDS: VANCOMYCIN HCL IVPB SCH ×2 (01:48→14:21)
[2018-06-19] MEDS: SODIUM CHL 0.9% IVPB SCH ×2 (01:48→14:21)
[2018-06-19] MEDS: MEROPENEM 1 GM in SODIUM CHL 0.9% 50ML MIN-BAG+ 50 ML IVPB SCH ×3 (01:53→18:07)
[2018-06-19] MEDS: LACTATED RINGERS 1,000 ML IVS PRN ×2 (04:25→13:16)
--- NOTE | 2018-06-19 07:09 | RAD ---
Procedure: XR CHEST 1 VIEW Exam Date: 06/19/2018 Ordering Provider: Akhil Palacios Clinical Indication: Pneumonia Comparison: 06/17/2018 Findings: Cardiac mediastinal silhouette is unremarkable. Aortic calcification. Bibasilar subsegmental atelectasis and/or infiltrate. Small bilateral pleural effusions versus scarring at the costophrenic angles. No pneumothorax. No acute osseous abnormalities. Impression: 1. Bibasilar subsegmental atelectasis and/or infiltrate, not significantly changed from prior. 2. Small bilateral pleural effusions versus scarring at the costophrenic angles. Electronically signed by: Robbin Elise MD 06/19/2018 7:08 AM CDT
[2018-06-19] MEDS ORDERED: POTASSIUM CHLORIDE 20 MEQ TAB PO ONE (11:02)
[2018-06-19] MEDS ORDERED: POTASSIUM CHLORIDE ELIXIR 20 MEQ/15 ML UD PO ONE (12:11)
[2018-06-19] MEDS: NON-FORMULARY MEDICATION 1 EA MIS (Sodium Chloride [Sodium Chloride] 1 GM) GT SCH ×2 (14:26→21:44)
[2018-06-19] MEDS: GABAPENTIN 300 MG CAP GT SCH ×2 (14:32→21:39)
[2018-06-19] MEDS ORDERED: [UNRECOGNIZED DRUG - OTHER] GT PRN (16:52)
--- NOTE | 2018-06-19 17:56 | PN ---
DATE: 06/19/18 SUPERVISING PHYSICIAN: Deric Richardson M.D. SUBJECTIVE: The patient is lying in bed watching television. He has no complaints of nausea, vomiting, shortness of breath or chest pain. It has been reported that he gets slightly confused per nursing staff, but he has not required his BiPAP since last night. OBJECTIVE: VITAL SIGNS: Temperature 99, heart rate 97, blood pressure 148/76, respiratory rate 20, O2 sat is 94% on 2 liters nasal cannula. RESPIRATORY: Diminished breath sounds throughout, but otherwise clear to auscultation. He is more diminished at the bases. There is no wheezing noted. CARDIAC: Regular rate and rhythm. GASTROINTESTINAL: Abdomen is soft, nondistended, non-tender. He has a G tube in place. EXTREMITIES: No cyanosis, clubbing or edema. NEUROLOGIC: He is awake, alert and oriented times three. Although it has been reported that he does get slightly confused at times, he answers most questions appropriately. LABORATORY: WBCs have improved to 14,200 with hemoglobin 11.4, hematocrit 35.5. He still has a left shift on differential with neutrophils at 96.1. Sodium 142, potassium 3.4, chloride 106, carbon dioxide 28. Preliminary blood cultures show no growth after 24 hours. Sputum culture is pending. Chest x-ray shows bibasilar subsegmental atelectasis and/or infiltrate not significantly changed from prior, small bilateral pleural effusions versus scarring at the costophrenic angles. All other labs and films have been reviewed via the EMR. ASSESSMENT: 1. Acute hypoxic respiratory failure that has improved. He has been on NIPPB. 2. Septic shock secondary to healthcare associated pneumonia. 3. Healthcare associated pneumonia, most recently which grew out serratia marcescens with multi-drug resistance. 4. Likely acute kidney injury based on his elevated BUN. His creatinine is normal. 5. Altered mental status most likely secondary to metabolic encephalopathy that is now improved. PLAN: We will continue present supportive care. I have restarted his home medications via his G tube and I have also started his G tube feedings. I have given him supplemental potassium. I am decreasing his IV steroids and he will start p.o. steroids tomorrow. Will repeat his lab in the morning. I will hold on a chest x-ray to see if he is clinically improved tomorrow. Will continue the Merrem and vancomycin for now. We really need to be cautious to sit the patient up when he is eating and when medications are administered. On discharge he needs a speech therapy consultation as an outpatient. As soon as his G tube feedings and free water are started, I will discontinue his IV fluids. Hopefully he can be discharged in the next day or two back to [facility]. Dr. Richardson is the collaborating physician available for consultation. #[id number] [facility]
[2018-06-19] MEDS: SODIUM CHLORIDE 0.9% (FLUSH) 10 ML SYG IV PRN (18:07)
[2018-06-19] MEDS ORDERED: PARoxetine HCL 20 MG TAB ONE ×2 (20:24→21:28)
[2018-06-19] MEDS: POLYVINYL ALCOHOL 1.4% OPHTH SOL 1 DROP BOTH_EYES SCH (20:59)
[2018-06-19] MEDS ORDERED: PAROXETINE HCL 30 MG GT SCH (21:00)
[2018-06-19] MEDS: guaiFENesin 100 MG/5 ML 10 ML UD GT SCH (21:39)
[2018-06-20] MEDS: methylPREDNISolone SODIUM SUC 40 MG/ML VIAL IV SCH ×2 (00:18→05:41)
[2018-06-20] MEDS: NUTRITIONAL SUPPLEMENTS GT SCH ×2 (00:18→08:26)
[2018-06-20] MEDS: PANTOPRAZOLE SODIUM IV 40 MG VIAL IV SCH (00:18)
[2018-06-20] MEDS: ENOXAPARIN SODIUM 40 MG/0.4 ML SYG SUBCU SCH (00:19)
[2018-06-20] MEDS: MEROPENEM 1 GM in SODIUM CHL 0.9% 50ML MIN-BAG+ 50 ML IVPB SCH ×2 (01:40→10:00)
[2018-06-20] MEDS ORDERED: SODIUM CHL 0.9% 50ML MIN-BAG+ 50 ML IVPB ONE ×2 (02:35→08:00)
[2018-06-20] MEDS ORDERED: SODIUM CHL 0.9% 250ML (AVIVA) 250 ML IVPB ONE (02:36)
[2018-06-20] MEDS ORDERED: MEROPENEM 1 GM VIAL IVPB ONE ×2 (02:36→08:00)
[2018-06-20] MEDS ORDERED: VANCOMYCIN HCL INJ 1,000 MG VIAL IVPB ONE (02:36)
[2018-06-20] MEDS: LACTATED RINGERS 1,000 ML IVS PRN (02:43)
[2018-06-20] MEDS: SODIUM CHL 0.9% IVPB SCH (02:48)
[2018-06-20] MEDS: VANCOMYCIN HCL IVPB SCH (02:48)
[2018-06-20] MEDS: IPRATROPIUM/ALBUTEROL 3 ML VIAL INH SCH ×2 (04:00→07:43)
[2018-06-20] MEDS: GABAPENTIN 300 MG CAP GT SCH (08:26)
[2018-06-20] MEDS: guaiFENesin 100 MG/5 ML 10 ML UD GT SCH (08:26)
[2018-06-20] MEDS: POLYVINYL ALCOHOL 1.4% OPHTH SOL 1 DROP BOTH_EYES SCH (08:27)
[2018-06-20] MEDS ORDERED: POTASSIUM CHLORIDE ELIXIR 20 MEQ/15 ML UD PO ONE (08:39)
[2018-06-20 08:50] VITALS: BP 166/81; TEMP 99.2; O2SAT 91
[2018-06-20] MEDS ORDERED: NON-FORMULARY MEDICATION 1 EA MIS (Lactobacillus [Acidophilus] 1 CAP) GT SCH (09:00)
[2018-06-20] MEDS ORDERED: MAGNESIUM SULFATE PREMIX 2GM 50 ML IVPB ONE (09:12)
[2018-06-20] MEDS ORDERED: MAGNESIUM SULFATE PREMIX 2GM 2 GM in PREMIX BAG 1 BAG IVPB SCH (09:45)
--- NOTE | 2018-06-20 11:58 | DS ---
SUPERVISING PHYSICIAN: Deric Richardson MD DISCHARGE DIAGNOSIS: 1. Acute hypoxic respiratory failure that has improved. He has been on NIPPB. 2. Septic shock secondary to healthcare associated pneumonia. 3. Healthcare associated pneumonia, most recently which grew out serratia marcescens with multi-drug resistance. 4. Likely acute kidney injury based on his elevated BUN. His creatinine is normal. 5. Altered mental status most likely secondary to metabolic encephalopathy that is now improved. HISTORY OF PRESENT ILLNESS: This is a 67-year-old male patient who lives at [facility]. He came to the Emergency Room due to shortness of breath and low O2 saturations that have been going on progressively for the last few days. He had a cough. He was in the hospital a month ago with healthcare associated pneumonia. He had a serratia marcescens pneumonia with lots of resistance. He was placed on antibiotics and was discharged back to the intermediate. In the Emergency Room, he was given some Lasix, a breathing treatment and placed on a non-rebreather initially. O2 saturations were in the 60s and 70s and then placed on noninvasive ventilation. He was given Merrem and ibuprofen through his G-tube with 60 mg of IV methylprednisolone. His labs came back and showed a white count of 19,000 with 32% bands. He had a pretty much unremarkable chemistry other than the fact that his BUN was elevated at 37. Lactate was 1.5, BNP 104. Chest x-ray was consistent with bibasilar pneumonia. He was admitted to the hospital. Initially in the Emergency Room, his blood pressure was 80/57 and improved to 149/56. Once he got to the Floor, however, his systolic blood pressure dropped to the 60s. He was also very lethargic. He did follow commands, but with some difficulty. He was given some saline. Arterial blood gas showed pH 7.36, PCO2 49, PO2 84, bicarb 26.7, base excess of 1.2 with O2 saturation 96%. He was placed back on BiPAP that was taken off from the Emergency Room. With the BiPAP and the fluids, his pressure and mental status improved significantly. HOSPITAL COURSE: He was continued on Merrem and vancomycin during his hospital course. He was also given IV steroids and today he was placed on oral steroids. His white count had gone from 19,900 down to 11,400 today. Hemoglobin and hematocrit are stable at 11.6 and 35.7. Potassium and magnesium were slightly low today and he received replacement for both. His vital signs are stable with him being afebrile, heart rate 92, blood pressure 166/81, respiratory rate 18, O2 saturation running between 95% and 97%. He has had aggressive pulmonary hygiene. His chest x-ray is not significantly changed, but is not worsened and he is clinically improved. He is begging to go back to the intermediate and we will discharge him today back to [facility]. There has been a question all along that he has had some aspiration pneumonia. He has a G-tube. We were very careful with his tube feedings at the hospital. He has been sitting up at greater than 60 degrees and has had no problems with possible aspiration while in the hospital. DISCHARGE PLAN: The patient will be discharged to [facility] in stable condition. He is to resume his previous activity and medications plus we will add doxycycline and Levaquin to be administered for 7 days through his G-tube. He is also on oral prednisone and I have sent him for a prescription for a tapered dose. It would be strongly recommended that the patient's tube feedings and medications be coordinated, that he will be allowed to sit up at greater than 60 degrees after administration of anything into his G -tube. It would also be strongly recommended that the patient have a speech therapy consult as the patient does try to take some things orally and he probably is at very high risk for aspiration. It would be recommended to check the culture and sensitivities on the final sputum culture. His blood cultures showed no growth after 48 hours. He is to followup with his primary care physician within 1 to 2 weeks and to return to the hospital or call his primary care physician's office for any problems or complications. DISCHARGE MEDICATIONS: 1. Multivitamins. 2. Glucerna. 3. Free water boluses. 4. Sodium chloride tablets. 5. Nexium. 6. Vitamin C. 7. Melatonin. 8. Boost. 9. Paxil. 10. Artificial tears. 11. Motrin. 12. Robitussin. 13. Acidophilus. 14. Argentate. 15. Gabapentin. 16. Prednisone taper. 17. Doxycycline. 18. Levofloxacin. #[id number] [facility]
== END 2018-06-20 12:10 | DRG 871 ==
LOC: ER 21:04 → OBSVTOIN 23:57 → MS 23:57
PROVIDERS: ADMIT Nurse Practitioner; ATTEND Nurse Practitioner Acute Care
DX: A41.9 Sepsis, unspecified organism (principal); J96.01 Acute respiratory failure with hypoxia; J18.9 Pneumonia, unspecified organism; N17.9 Acute kidney failure, unspecified; G93.41 Metabolic encephalopathy; R65.21 Severe sepsis with septic shock; E11.9 Type 2 diabetes mellitus without complications; Y95 Nosocomial condition; Z93.1 Gastrostomy status; Z89.612 Acquired absence of left leg above knee; Z89.511 Acquired absence of right leg below knee; Z88.3 Allergy status to other anti-infective agents; Z87.891 Personal history of nicotine dependence; Z85.89 Personal history of malignant neoplasm of other organs and systems; Z79.1 Long term (current) use of non-steroidal anti-inflammatories (NSAID); Z79.899 Other long term (current) drug therapy; Z66 Do not resuscitate

== ENCOUNTER 2018-07-13 13:33 | Inpatient (IN) | payer MEDICARE ==
[2018-07-13] MEDS ORDERED: IPRATROPIUM/ALBUTEROL 3 ML VIAL NEB ONE (13:53)
--- NOTE | 2018-07-13 14:44 | RAD ---
EXAM DESCRIPTION: Chest,1 View CLINICAL HISTORY: sob COMPARISON: June 29, 2016 FINDINGS: Cardiac silhouette is within normal limits. EKG leads project over the chest. Blunted right costophrenic angle is unchanged. Reticular opacities within both lungs could be secondary to underlying pulmonary edema versus interstitial lung disease. Recommend follow-up. There is an old right clavicular fracture. Skin folds project over the right chest. IMPRESSION: Reticular opacities within both lungs could be secondary to underlying pulmonary edema versus interstitial lung disease. Recommend follow-up. Electronically signed by: Leonel Palumbo MD 07/13/2018 2:42 PM CDT
[2018-07-13] MEDS ORDERED: SODIUM CHLORIDE 0.9% 1000ML 500 ML IVS ONE (14:54)
[2018-07-13] MEDS ORDERED: CEFEPIME 1 GM in SODIUM CHLORIDE 0.9% 50ML 50 ML IVPB ONE (15:11)
[2018-07-13] MEDS ORDERED: AZITHROMYCIN IV 500 MG in SODIUM CHLORIDE 0.9% 250ML 250 ML IVPB ONE (15:11)
[2018-07-13] MEDS ORDERED: CLINDAMYCIN IV 600MG 600 MG in PREMIX BAG 1 BAG IVPB ONE (15:11)
[2018-07-13] MEDS ORDERED: metOLazone 2.5 MG TAB PO ONE (15:16)
[2018-07-13] MEDS ORDERED: methylPREDNISolone SODIUM SUC 40 MG/ML VIAL IV ONE (15:17)
--- NOTE | 2018-07-13 15:21 | ED.PDOC ---
History of Present Illness - General Chief Complaint: Respiratory Problem Stated Complaint: breathing difficulty,low oxygen sats Time Seen by Provider: 07/13/18 13:52 Source: patient Exam Limitations: no limitations - History of Present Illness Initial Comments: the patient is a 67-year-old male presenting to the emergency room by EMS secondary to progressive shortness of breath over the last 24-48 hours. He does have a low-grade fever here currently. He has had multiple pneumonias in the past couple of months. He does have a history of growing atypical pathogens with multidrug resistance. He does have a history of aspiration. He also has a history of hyponatremia for which she takes a sodium supplement and a history of pulmonary fibrosis and possible CHF resulted from that. The patient has had shortness of breath and a productive cough. No chest pain. No syncope or near syncope. No abdominal pain. Timing/Duration: 24 hours Severity: moderate Improving Factors: nothing Worsening Factors: nothing Associated Symptoms: cough, shortness of breath Allergies/Adverse Reactions: Allergies Sulfamethoxazole w/Trimethoprim [From Bactrim] Allergy (Verified 06/18/18 03:46) Home Medications: Ambulatory Orders Ascorbic Acid [Vitamin C] 500 mg GT BID 02/28/17 Esomeprazole Magnesium [Nexium] 40 mg GT 0600 02/28/17 Infant Foods [Water Oral] 50 ml GT 0000,0800,1600 PRN 02/28/17 Multiple Vitamins W/ Minerals [Multivitamin Adults] 1 tab GT DAILY 02/28/17 Nutritional Supplements [Glucerna 1.5 Bo] 237 ml GT 0000,0800,1600 02/28/17 Sodium Chloride 1 gm GT TID 02/28/17 Ibuprofen [Motrin] 600 mg GT BID 05/13/18 Melatonin 6 mg GT BEDTIME 05/13/18 Nutritional Supplements [Boost 100 Calorie Smart] 1 liq GT QID PRN 05/13/18 Paroxetine HCl [Paxil] 30 mg GT BEDTIME 05/13/18 Polyvinyl Alcohol [Artificial Tears] 1 drop BOTH_EYES BID 05/13/18 guaiFENesin 100 MG/5 ML [Robitussin] 30 ml GT BID ud 05/16/18 Gabapentin 300 mg GT TID 06/18/18 Lactobacillus [Acidophilus] 1 cap GT DAILY 06/18/18 Nutritional Supplements [Arginaid] 1 josé GT BID 06/18/18 Prednisone [Prednisone Intensol] See Taper GT DAILY #300 ml 06/20/18 Ipratropium [place]/Albut 0.5-2.5 (3) mg/3Ml 1 neb INH Q4HR PRN 06/27/18 Bifidobacterium Infantis [Align] 4 mg PO DAILY cap 06/29/18 Doxycycline (Monohydrate) [Vibramycin] 100 mg GT BID 5 Days #200 ml 06/29/18 levoFLOXacin [Levaquin] 500 mg GT DAILY #7 tab 06/29/18 Review of Systems - Review of Systems Constitutional: States: fever, malaise EENTM: States: no symptoms reported Respiratory: States: cough, short of breath, wheezing Cardiology: States: no symptoms reported Gastrointestinal/Abdominal: States: no symptoms reported Genitourinary: States: no symptoms reported Musculoskeletal: States: see HPI - chronic pain issues Skin: States: no symptoms reported Neurological: States: no symptoms reported Endocrine: States: no symptoms reported All other Systems: No Change from Baseline Past Medical History (General) - Patient Medical History Hx Seizures: No Hx Stroke: No Hx Dementia: No Hx Asthma: No Hx of COPD: Yes Hx Cardiac Disorders: No Hx Congestive Heart Failure: No Hx Pacemaker: No Hx Hypertension: No Hx Thyroid Disease: No Hx Diabetes: Yes Hx Gastroesophageal Reflux: Yes Hx Renal Disease: No Hx Cancer: No Hx of HIV: No Hx Hepatitis C: No Hx MRSA: No - Vaccination History Hx Influenza Vaccination: Yes Hx Pneumococcal Vaccination: No - Social History Hx Tobacco Use: Yes Hx Alcohol Use: No Hx Substance Use: No Hx Substance Use Treatment: No Hx Depression: No Hx Physical Abuse: No Hx Emotional Abuse: No - Activities of Daily Living Care Home/Assisted Living (if applicable):: [facility] - Female History Patient : No Family Medical History - Family History Mother Family History: No Known Living Status: Father Family History: No Known Living Status: Physical Exam - Physical Exam General Appearance: Alert Eye Exam: bilateral normal Ears, Nose, Throat: hearing grossly normal, normal ENT inspection, normal pharynx Neck: non-tender, supple Respiratory: respiratory distress - mild, accessory muscle use, crackles, rales , rhonchi Cardiovascular/Chest: normal peripheral pulses, no edema, tachycardia Peripheral Pulses: radial,right: 2+, radial,left: 2+ Gastrointestinal/Abdominal: soft, other - G-tube in place Rectal Exam: deferred Back Exam: no CVA tenderness, no vertebral tenderness Extremity: normal range of motion, non-tender, other - chronic bilateral lower extremity indications with healing abrasions Neurologic: rag sorter and cutter II-XII nml as tested, alert, normal mood/affect, oriented x 3 Skin Exam: normal color - see above Comments: Vital Signs - 24 hr 07/13/18 07/13/18 07/13/18 13:39 13:44 14:09 Temperature 100.6 F H Pulse Rate 105 H Pulse Rate [ 106 H Right Brachial] Respiratory 24 24 18 Rate Blood Pressure 122/74 [Right Arm] O2 Sat by Pulse 96 97 Oximetry Progress - Progress Progress: 07/13/18 15:22 the patient is a 67-year-old man present emergency room secondary to what appears to be a recurrent pneumonia. The patient has a history of multiple recurrent pneumonias due to recurrent aspiration issues. The patient will be placed on broad-spectrum antibiotics of clindamycin, cefepime and azithromycin partly based on previous culture results. Additionally the patient does have some significant hypernatremia likely due to sodium chloride tablet supplementation. The patient is being given a dose of metolazone for this as well as probable mild fluid overload in the lungs. Additionally he is being given 500 cc of saline to help bring down the sodium level as well. He may require additional diuretics depending on how much of the picture looks like congestive heart failure after this initial treatment. BNP is elevated but has been higher in the past. Continue oxygen supplementation. He has received several nebulizer treatments so far. A urine Legionella has been sent off. A sputum culture and blood culture been sent off. Admit for further management. he did also receive 1 dose of Solu-Medrol. 07/13/18 15:25 - Results/Orders Results/Orders: 07/13/18 13:53 Telemetry .CONTINUOUS 07/13/18 14:00 EKG STAT EKG shows mild sinus tachycardia at 105 bpm. He does have left atrial dilation. Normal R-wave progression. No acute ST segment changes concerning for ischemia. Otherwise normal EKG with possible short SD. Chest x-ray shows fluid overload versus infiltrates versus interstitial chronic changes. 07/13/18 14:17 BLOOD CULTURE Stat SPUTUM CULTURE Stat Laboratory Results - last 24 hr 07/13/18 07/13/18 07/13/18 14:17 14:17 14:17 WBC 6.3 RBC 4.05 L Hgb 12.3 L Hct 37.9 L MCV 93.5 MCH 30.3 MCHC 32.5 L RDW 18.7 H Plt Count 180 MPV 9.7 Absolute Neuts (auto) 5.10 Absolute Lymphs (auto) 0.30 L Absolute Monos (auto) 0.80 Absolute Eos (auto) 0.00 Absolute Basos (auto) 0.00 Neutrophils % 81.1 H Lymphocytes % 5.6 L Monocytes % 13.0 H Eosinophils % 0.2 L Basophils % 0.1 PT 11.9 H INR 1.19 H PTT (SP) 29.4 Sodium 150 H Potassium 3.6 Chloride 109 Carbon Dioxide 32 H Anion Gap 12.6 BUN 30 H Creatinine 0.57 L BUN/Creatinine Ratio 52.6 H Random Glucose 144 H Serum Osmolality 306.7 H Calcium 9.0 Total Bilirubin 0.5 AST 17 ALT 12 Alkaline Phosphatase 74 Creatine Kinase 15 L CK-MB (CK-2) 1.5 CK-MB (CK-2) % Not Reportable Troponin I 0.02 B-Natriuretic Peptide 915.0 H* Serum Total Protein 6.8 Albumin 2.9 L Globulin 3.9 H Albumin/Globulin Ratio 0.7 L Departure - Departure Clinical Impression: Acute hypernatremia Pneumonia Qualifiers: Pneumonia type: aspiration pneumonia Aspiration pneumonia type: unspecified Laterality: bilateral Lung location: unspecified part of lung Qualified Code(s) : J69.0 - Pneumonitis due to inhalation of food and vomit Disposition: Admit Patient Condition: Fair Referrals: SKYE MENDEZ [Primary Care Provider] - 1-2 Weeks Home Medications: Ambulatory Orders Ascorbic Acid [Vitamin C] 500 mg GT BID 02/28/17 Esomeprazole Magnesium [Nexium] 40 mg GT 0600 02/28/17 Foods [Water Oral] 50 ml GT 0000,0800,1600 PRN 02/28/17 Multiple Vitamins W/ Minerals [Multivitamin Adults] 1 tab GT DAILY 02/28/17 Nutritional Supplements [Glucerna 1.5 Bo] 237 ml GT 0000,0800,1600 02/28/17 Sodium Chloride 1 gm GT TID 02/28/17 Ibuprofen [Motrin] 600 mg GT BID 05/13/18 Melatonin 6 mg GT BEDTIME 05/13/18 Nutritional Supplements [Boost 100 Calorie Smart] 1 liq GT QID PRN 05/13/18 Paroxetine HCl [Paxil] 30 mg GT BEDTIME 05/13/18 Polyvinyl Alcohol [Artificial Tears] 1 drop BOTH_EYES BID 05/13/18 guaiFENesin 100 MG/5 ML [Robitussin] 30 ml GT BID ud 05/16/18 Gabapentin 300 mg GT TID 06/18/18 Lactobacillus [Acidophilus] 1 cap GT DAILY 06/18/18 Nutritional Supplements [Arginaid] 1 josé GT BID 06/18/18 Prednisone [Prednisone Intensol] See Taper GT DAILY #300 ml 06/20/18 Ipratropium [place]/Albut 0.5-2.5 (3) mg/3Ml 1 neb INH Q4HR PRN 06/27/18 Bifidobacterium Infantis [Align] 4 mg PO DAILY cap 06/29/18 Doxycycline (Monohydrate) [Vibramycin] 100 mg GT BID 5 Days #200 ml 06/29/18 levoFLOXacin [Levaquin] 500 mg GT DAILY #7 tab 06/29/18 Decision To Admit - Decistion To Admit Decision to Admit Reason: Medical Nature Decision to Admit Date: 07/13/18 Decision to Admit Time: 15:26
[2018-07-13] MEDS ORDERED: CLINDAMYCIN IV 600MG 50 ML IVPB ONE (15:22)
--- NOTE | 2018-07-13 15:55 | HP ---
SUPERVISING PHYSICIAN: Deric Richardson M.D. CHIEF COMPLAINT: Shortness of breath. HISTORY OF PRESENT ILLNESS: This is a 67 year-old male patient who lives at [facility]. He has been in the hospital for healthcare acquire pneumonia with multiple different drug-resistant bacteria over the last month. He was actually in the hospital on 06/26/18, 06/17/18 and 05/12/18. Within the last 6 weeks, in his sputum he has grown out MRSA, Proteus mirabilis as well as Serratia marcescens with multiple drug resistance. Per the patient on AM, he woke up with some congestion and it worsened over the next 2 days. His O2 sats at that time were 97% and today prior to coming to the Emergency Room they got as low as 73%. He received multiple breathing treatments at the snf. He had also been sent home on Doxycycline and Levaquin. He completed his course of antibiotic therapy in the E. R. His vital signs showed pulse rate 105, temperature 100.6, blood pressure 135/65, respiratory rate 24, O2 sat was 93% on 4 liters nasal cannula. Blood cultures were done. Sputum culture was done. His labs showed a white count that was normal at 6.3 with hemoglobin 12.3 and hematocrit 37.9. He did have a left shift on differential. BNP was 915. Sodium 150. He does take sodium chloride pills routinely. Potassium 3.6, chloride 109, carbon dioxide 32, BUN 30, creatinine 0.57. Creatinine kinase was 15. His other cardiac enzymes were negative. Urinalysis was within normal limits. A urine Legionella was done in the E. R. Flu swab for A and B was negative. Chest x- ray showed reticular opacities within both lung krishna secondary to underlying pulmonary edema versus interstitial lung disease. He was also given clindamycin , a Lovenox injection, Pantoprazole, multiple breathing treatments as well as a dose of steroids. He was also given fluids as well as Zaroxolyn. I was called for hospital admission. PAST MEDICAL HISTORY: 1. Type 2 diabetes mellitus. 2. History of throat cancer. 3. Aspiration pneumonia with frequent hospitalization. 4. History of multiple admissions for healthcare acquired pneumonia with multiple drug resistant bacteria per INFORMATION SECURITY SPECIALIST. PAST SURGICAL HISTORY: 1. Bilateral lower extremity amputations with [id number] amputation on the left and [id number] amputation on the right. 2. PEG tube placement. CURRENT MEDICATIONS: Per the EMR and awaiting verification. ALLERGIES: BACTRIM. FAMILY HISTORY: Significant for heart disease and cancer. SOCIAL HISTORY: The patient lives at [facility]. He is disabled. He has a history of smoking 1 to 2 packs of cigarettes per day but quit several years ago due to throat cancer. He denies any alcohol or illicit drug use. REVIEW OF SYSTEMS: Positive for fatigue and fever. Negative for weight changes. HEENT: Negative for sinus symptoms, ear pain, vision changes or sore throat. RESPIRATORY: As per History of Present Illness. CARDIAC: Negative for chest pain, palpitations or tachycardia. GASTROINTESTINAL: Negative for nausea, vomiting, diarrhea or abdominal pain. GENITOURINARY: Negative for hematuria, dysuria or polyuria. NEUROLOGIC: Negative headaches, dizziness or seizures. SKIN: Negative for lesions or rashes. PHYSICAL EXAMINATION: VITAL SIGNS: Temperature 98.1, pulse rate 92, blood pressure 140/80, respiratory rate 20, O2 sat is 93% on 4 liters nasal cannula. GENERAL: This is a 67 year-old male patient who is lying in his hospital bed. He is in no acute distress. HEENT: Normocephalic and atraumatic. Oropharynx is clear. NECK: Supple without mass. There is no discernible jugular venous distention. RESPIRATORY: Scattered rhonchi throughout, very diminished at the bases with some crackles noted in the upper lung krishna. CHEST: There is equal rise and fall of the chest with inspiration and expiration. CARDIOVASCULAR: Regular rate and rhythm. GASTROINTESTINAL: Abdomen is soft, nondistended, non-tender. Bowel sounds are positive. There is a G tube in place. EXTREMITIES: Bilateral lower leg amputations. LABORATORY: Labs and films are as per the History of Present Illness. ASSESSMENT: 1. Sepsis as evidenced by a temperature of 100.6, heart rate 105 and respiratory rate of 24 to 27 related to healthcare associated pneumonia with multiple hospital admissions as well as multiple drug resistant strains of bacteria per culture and sensitivity over the last 6 weeks. His sputum culture from 06/23/18 grew out Proteus mirabilis and Methicillin resistant Staphylococcus aureus, and his sputum culture from 05/13/18 grew out Serratia marcescens. 2. History of frequent hospitalizations for aspiration pneumonia. 3. Diabetes mellitus type 2. 4. History of throat cancer. PLAN: I have initiated the pneumonia guidelines. Based on his previous INFORMATION SECURITY SPECIALIST results I have continued the clindamycin as well as started him on Zosyn. It may be beneficial to call Dr. Howell on Sunday to discuss antibiotic therapy for him for the next few weeks. I also started him on aggressive pulmonary hygiene. Will initiate his G tube feedings as ordered at the snf. I have also put him on every 6 hour Accu-Cheks with sliding scale fast-acting insulin. He will have a PPI for ulcer prophylaxis and Lovenox for DVT prophylaxis. Will monitor his cultures to assist with antibiotic therapy, although he has been on so many antibiotics and his last culture was negative. I will put him on low dose steroids. We will continue to monitor him closely and follow as needed. Dr. Richardson is the collaborating physician available for consultation. #[id number] [facility]ore
[2018-07-13] MEDS ORDERED: ALBUTEROL SULFATE 2.5 MG/3 ML VIAL NEB PRN (16:51)
[2018-07-13] MEDS ORDERED: ACETAMINOPHEN 325 MG TAB PO PRN (16:51)
[2018-07-13] MEDS ORDERED: IV SET AND CAP CHANGE INJ INJ SCH (17:00)
[2018-07-13] MEDS ORDERED: PIPERACILLIN/TAZOBACTAM 4.5 GM in SODIUM CHLORIDE 0.9% 100ML 100 ML IVPB ONE (18:00)
[2018-07-13] MEDS ORDERED: SODIUM CHLORIDE 0.9% 100ML 100 ML IVPB ONE ×3 (18:23→19:40)
[2018-07-13] MEDS ORDERED: PIPERACILLIN/TAZOBACTAM 2.25 GM VIAL IVPB ONE (18:23)
[2018-07-13] MEDS ORDERED: PIPERACILLIN/TAZOBACTAM 3.375 GM VIAL IVPB ONE ×2 (19:38→19:40)
[2018-07-13] MEDS ORDERED: CLINDAMYCIN IV 900MG 50 ML IVPB ONE (19:38)
[2018-07-13] MEDS ORDERED: GLUCAGON INJ 1 MG VIAL SUBCU PRN (20:12)
[2018-07-13] MEDS ORDERED: DEXTROSE 50% 25 GM/50 ML SYG IV PRN (20:12)
[2018-07-13] MEDS: IPRATROPIUM/ALBUTEROL 3 ML VIAL INH SCH (20:34)
[2018-07-13] MEDS: PIPERACILLIN/TAZOBACTAM 3.375 GM in SODIUM CHLORIDE 0.9% 100ML 100 ML IVPB SCH (20:51)
[2018-07-13] MEDS ORDERED: DEXTROSE 5% 1000ML 500 ML IVS ONE (20:51)
[2018-07-13] MEDS: SODIUM CHLORIDE 0.9% (FLUSH) 10 ML SYG IV SCH (20:52)
[2018-07-13] MEDS: ENOXAPARIN SODIUM 40 MG/0.4 ML SYG SUBCU SCH (20:52)
[2018-07-13] MEDS: BIFIDOBACTERIUM INFANTIS 4 MG CAP PO SCH (21:05)
[2018-07-14] MEDS: INSULIN LISPRO 100 UNITS/ML PEN SUBCU SCH ×4 (00:07→21:15)
[2018-07-14] MEDS: CLINDAMYCIN IV 900MG 900 MG in PREMIX BAG 1 BAG IVPB SCH ×3 (00:41→17:41)
[2018-07-14] MEDS ORDERED: CEFEPIME 2 GM in SODIUM CHL 0.9% 50ML MIN-BAG+ 50 ML IVPB SCH (02:00)
[2018-07-14] MEDS: PIPERACILLIN/TAZOBACTAM 3.375 GM in SODIUM CHLORIDE 0.9% 100ML 100 ML IVPB SCH ×3 (04:58→21:30)
[2018-07-14] MEDS: PANTOPRAZOLE SODIUM IV 40 MG VIAL IV SCH (06:11)
--- NOTE | 2018-07-14 06:41 | RAD ---
EXAM: AP CHEST RADIOGRAPH CLINICAL INDICATION: Pneumonia. COMPARISON: Yesterday's chest radiograph at 1356 hours. FINDINGS: Cardiac size and pulmonary vasculature are normal. Improving bibasilar pulmonary consolidations and bronchial wall thickening suggesting improving pulmonary congestion. Unchanged small right pleural effusion. No pneumothorax or free peritoneal gas. Unchanged left basilar nodular consolidation. No pleural effusions or pneumothorax. No hilar or mediastinal lymphadenopathy. No mediastinal widening. No extraluminal bowel gas under the hemidiaphragms. Bones are intact on this single view. IMPRESSION: Improving bibasilar pulmonary congestion since yesterday's chest radiograph. No pneumothorax. Electronically signed by: Wade Rodriguez MD 07/14/2018 6:40 AM CDT
[2018-07-14] MEDS ORDERED: CLINDAMYCIN IV 900MG 50 ML IVPB ONE ×2 (07:51→17:32)
[2018-07-14] MEDS: IPRATROPIUM/ALBUTEROL 3 ML VIAL INH SCH (08:10)
[2018-07-14] MEDS ORDERED: POTASSIUM CHLORIDE ELIXIR 20 MEQ/15 ML UD PO ONE (09:06)
[2018-07-14] MEDS ORDERED: [UNRECOGNIZED DRUG - OTHER] PEG SCH (09:15)
[2018-07-14] MEDS ORDERED: WATER GT PRN (10:29)
--- NOTE | 2018-07-14 10:32 | RAD ---
EXAM DESCRIPTION: Abdomen x-ray 1 View CLINICAL HISTORY: constipation COMPARISON: None. FINDINGS: Single supine view of the abdomen was submitted. Air within the colon without evidence of bowel obstruction. There is atherosclerosis. There is no acute osseous process visualized. IMPRESSION: Air within the colon without evidence of bowel obstruction. Electronically signed by: Leonel Palumbo MD 07/14/2018 10:31 AM CDT
[2018-07-14] MEDS ORDERED: ACETAMINOPHEN LIQUID 160 MG/5 ML UD GT PRN (11:00)
[2018-07-14] MEDS ORDERED: IPRATROPIUM/ALBUTEROL 3 ML VIAL NEB PRN (12:00)
[2018-07-14] MEDS: IPRATROPIUM/ALBUTEROL 3 ML VIAL NEB SCH ×3 (12:39→21:30)
[2018-07-14] MEDS ORDERED: PIPERACILLIN/TAZOBACTAM 3.375 GM VIAL IVPB ONE ×2 (13:24→20:20)
[2018-07-14] MEDS ORDERED: SODIUM CHLORIDE 0.9% 100ML 100 ML IVPB ONE ×2 (13:25→20:20)
[2018-07-14] MEDS ORDERED: POTASSIUM CHLORIDE ELIXIR 20 MEQ/15 ML UD ONE (13:29)
[2018-07-14] MEDS: BIFIDOBACTERIUM INFANTIS 4 MG CAP PO SCH ×2 (13:48→21:04)
[2018-07-14] MEDS: GABAPENTIN 300 MG CAP GT SCH ×3 (13:48→21:03)
[2018-07-14] MEDS: guaiFENesin 100 MG/5 ML 10 ML UD GT SCH ×2 (13:49→21:06)
[2018-07-14] MEDS: SODIUM CHLORIDE 0.9% (FLUSH) 10 ML SYG IV SCH ×2 (13:49→21:05)
[2018-07-14] MEDS: CARBOXYMETHYLCELLULOSE 0.5% OPHTH SOL 0.4 ML UD BOTH_EYES SCH ×2 (13:49→21:03)
[2018-07-14] MEDS: LACTOBACILLUS 1 TAB GT SCH ×2 (13:50→21:02)
[2018-07-14] MEDS: NUTRITIONAL SUPPLEMENTS GT SCH ×4 (13:50→22:25)
[2018-07-14] MEDS ORDERED: AZITHROMYCIN IV 500 MG in SODIUM CHLORIDE 0.9% 250ML 250 ML IVPB SCH (15:00)
--- NOTE | 2018-07-14 16:27 | PN ---
SUPERVISING PHYSICIAN: Deric Richardson MD DATE: 07/14/18 SUBJECTIVE: The patient is sitting up in his bed watching television. He feels "much, much better today." He has had no complaints of shortness of breath, nausea or vomiting, diarrhea or chest pain. OBJECTIVE: VITAL SIGNS: He is afebrile. Heart rate 81, blood pressure 125/74, respiratory rate 18, O2 sat is 96% on 2 liters nasal cannula. RESPIRATORY: Diminished breath sounds at the bases but basically clear in the upper airways. CARDIOVASCULAR: Regular rate and rhythm. GASTROINTESTINAL: Abdomen is soft, nondistended, non-tender. Bowel sounds are positive. He has a PEG tube in place. NEURO: He is awake, alert, and oriented x3. LABORATORY: WBC 3.6 with a stable hemoglobin and hematocrit at 12.2 and 37.5. He continues to have a left shift on his differential. His sodium is 141, potassium slightly low at 3.4 with chloride of 100. Carbon dioxide 31. Blood sugars have run between 144 and 145. Sputum culture is pending. Preliminary blood cultures are negative to date. Chest x-ray shows improving bibasilar pneumonia, congestion since yesterday's chest radiograph. Abdominal x-ray shows air within the colon without evidence of bowel obstruction. All other labs and films have been reviewed via the EMR. ASSESSMENT: 1. Sepsis as evidenced by a temperature of 100.6, heart rate 105 and respiratory rate of 24 to 27 related to healthcare associated pneumonia with multiple hospital admissions as well as multiple drug resistant strains of bacteria per culture and sensitivity over the last 6 weeks. His sputum culture from 06/23/18 grew out Proteus mirabilis and Methicillin resistant Staphylococcus aureus, and his sputum culture from 05/13/18 grew out Serratia marcescens. 2. History of frequent hospitalizations for aspiration pneumonia. 3. Diabetes mellitus type 2. 4. History of throat cancer. PLAN: We will continue present supportive care. His tube feedings have been restarted. Total free water that will be given to patient will be 480 mL in a 24-hour period. He has a significant history of hyponatremia but yesterday he was hypernatremic so we will continue with his free water as ordered at the alf but I have held his sodium tablets from his home medications. I will recheck his lab in the morning to decide if his free water needs to be increased or decreased or if he needs those sodium pills restarted. Earlier this morning, he had complained to the nurses. He was constipated with some abdominal discomfort and I ordered an abdominal x-ray but that showed no abnormalities and since then the patient has had 2 to 3 stools before my examination. I have given him some potassium supplementation and will repeat his labs in the morning and treat as needed. #[id number] [facility]
[2018-07-14] MEDS: WATER PEG SCH ×2 (17:41→22:30)
[2018-07-14] MEDS: PARoxetine HCL 20 MG TAB GT SCH (21:03)
[2018-07-14] MEDS: ENOXAPARIN SODIUM 40 MG/0.4 ML SYG SUBCU SCH (21:04)
[2018-07-14] MEDS: MELATONIN 3 MG TAB GT SCH (21:04)
[2018-07-14] MEDS: IBUPROFEN SUSP 100 MG/5 ML UD GT SCH (21:05)
[2018-07-15] MEDS ORDERED: CLINDAMYCIN IV 900MG 50 ML IVPB ONE ×2 (00:22→07:34)
[2018-07-15] MEDS: CLINDAMYCIN IV 900MG 900 MG in PREMIX BAG 1 BAG IVPB SCH ×2 (00:27→08:09)
[2018-07-15] MEDS ORDERED: PIPERACILLIN/TAZOBACTAM 3.375 GM VIAL IVPB ONE ×3 (02:05→19:44)
[2018-07-15] MEDS ORDERED: SODIUM CHLORIDE 0.9% 100ML 100 ML IVPB ONE ×3 (02:05→19:44)
[2018-07-15] MEDS: PIPERACILLIN/TAZOBACTAM 3.375 GM in SODIUM CHLORIDE 0.9% 100ML 100 ML IVPB SCH ×3 (05:25→21:07)
[2018-07-15] MEDS: PANTOPRAZOLE SODIUM IV 40 MG VIAL IV SCH (06:01)
[2018-07-15] MEDS: SODIUM CHLORIDE 0.9% (FLUSH) 10 ML SYG IV PRN (06:02)
[2018-07-15] MEDS: INSULIN LISPRO 100 UNITS/ML PEN SUBCU SCH ×5 (06:03→22:07)
[2018-07-15] MEDS: WATER PEG SCH ×3 (06:03→22:07)
[2018-07-15] MEDS: NUTRITIONAL SUPPLEMENTS GT SCH ×5 (06:03→22:07)
[2018-07-15] MEDS: IPRATROPIUM/ALBUTEROL 3 ML VIAL NEB SCH ×4 (08:16→20:30)
[2018-07-15] MEDS: LACTOBACILLUS 1 TAB GT SCH ×2 (10:00→21:00)
[2018-07-15] MEDS: BIFIDOBACTERIUM INFANTIS 4 MG CAP PO SCH ×2 (10:00→21:00)
[2018-07-15] MEDS: GABAPENTIN 300 MG CAP GT SCH ×3 (10:00→20:58)
[2018-07-15] MEDS: CARBOXYMETHYLCELLULOSE 0.5% OPHTH SOL 0.4 ML UD BOTH_EYES SCH ×2 (10:00→20:58)
[2018-07-15] MEDS: guaiFENesin 100 MG/5 ML 10 ML UD GT SCH ×2 (10:00→20:59)
[2018-07-15] MEDS: IBUPROFEN SUSP 100 MG/5 ML UD GT SCH ×2 (10:00→20:58)
[2018-07-15] MEDS: SODIUM CHLORIDE 0.9% (FLUSH) 10 ML SYG IV SCH ×2 (10:01→20:35)
[2018-07-15] MEDS ORDERED: IPRATROPIUM/ALBUTEROL 3 ML VIAL NEB PRN (10:30)
[2018-07-15] MEDS ORDERED: POTASSIUM CHLORIDE ELIXIR 20 MEQ/15 ML UD PO ONE (11:03)
[2018-07-15] MEDS ORDERED: MAGNESIUM SULFATE PREMIX 2GM 2 GM in PREMIX BAG 1 BAG IVPB ONE (11:03)
[2018-07-15] MEDS ORDERED: MAGNESIUM SULFATE PREMIX 2GM 50 ML IVPB ONE (12:33)
[2018-07-15] MEDS ORDERED: LACTATED RINGERS 1,000 ML IVS ONE (13:38)
[2018-07-15] MEDS ORDERED: DEX 5% W/NACL 0.45% 1000ML 1,000 ML IVS PRN (13:41)
--- NOTE | 2018-07-15 14:32 | PN ---
SUPERVISING PHYSICIAN: Radha Zepeda MD DATE: 07/15/18 SUBJECTIVE: The patient states he feels even better today than he did yesterday. He feels like he is progressing well, but still having a cough. OBJECTIVE: VITAL SIGNS: Blood pressure 130/82. Heart rate 68. Respiratory rate 18. Temperature 97.4. Oxygen saturation 98%. GENERAL: Mr. Hays is a 67-year-old male patient in no active distress. NEUROLOGIC: Alert and oriented. LUNGS: Diminished in the bases, but otherwise clear to auscultation bilaterally. CARDIOVASCULAR: Regular rate and rhythm. Normal S1, S2. ABDOMEN: Soft. Positive bowel sounds. No tenderness to palpation. There is a PEG tube in place. LABORATORY: White count 4.8, however, this morning he does have 11% bandemia. Chemistry shows low potassium of 3.4 and low magnesium of 1.7. BUN and creatinine are unchanged. ASSESSMENT: 1. Sepsis secondary to healthcare associated pneumonia with history of multi- drug resistant organisms. 2. Frequent hospitalizations for aspiration pneumonia. 3. Diabetes mellitus, type 2. 4. History of throat cancer. PLAN: His sputum culture is negative so far. He is on Zosyn and clindamycin, so I will discontinue the clindamycin as this has the same coverage as Zosyn. I have replaced his potassium as well as magnesium and his sodium is improved today from the high sodium level on admission. We will continue DVT and GI ulcer prophylaxis as well. We will recheck labs tomorrow to ensure he is having a positive response to the antibiotics. #[id number] [facility]
[2018-07-15] MEDS: NYSTATIN POWDER 15GM BTTL TOP SCH ×2 (17:18→21:00)
[2018-07-15] MEDS: PARoxetine HCL 20 MG TAB GT SCH (20:58)
[2018-07-15] MEDS: MELATONIN 3 MG TAB GT SCH (21:00)
[2018-07-15] MEDS: ENOXAPARIN SODIUM 40 MG/0.4 ML SYG SUBCU SCH (21:06)
[2018-07-16] MEDS ORDERED: SODIUM CHLORIDE 0.9% 100ML 100 ML IVPB ONE (03:36)
[2018-07-16] MEDS ORDERED: PIPERACILLIN/TAZOBACTAM 3.375 GM VIAL IVPB ONE (03:36)
[2018-07-16] MEDS: PIPERACILLIN/TAZOBACTAM 3.375 GM in SODIUM CHLORIDE 0.9% 100ML 100 ML IVPB SCH (05:09)
[2018-07-16] MEDS: INSULIN LISPRO 100 UNITS/ML PEN SUBCU SCH (06:13)
[2018-07-16] MEDS: WATER PEG SCH (06:14)
[2018-07-16] MEDS: NUTRITIONAL SUPPLEMENTS GT SCH ×2 (06:14→09:47)
[2018-07-16] MEDS: SODIUM CHLORIDE 0.9% (FLUSH) 10 ML SYG IV PRN (06:14)
[2018-07-16] MEDS: PANTOPRAZOLE SODIUM IV 40 MG VIAL IV SCH (06:14)
[2018-07-16] MEDS: IPRATROPIUM/ALBUTEROL 3 ML VIAL NEB SCH (09:02)
[2018-07-16] MEDS: BIFIDOBACTERIUM INFANTIS 4 MG CAP PO SCH (09:45)
[2018-07-16] MEDS: CARBOXYMETHYLCELLULOSE 0.5% OPHTH SOL 0.4 ML UD BOTH_EYES SCH (09:45)
[2018-07-16] MEDS: GABAPENTIN 300 MG CAP GT SCH (09:45)
[2018-07-16] MEDS: LACTOBACILLUS 1 TAB GT SCH (09:45)
[2018-07-16] MEDS: IBUPROFEN SUSP 100 MG/5 ML UD GT SCH (09:46)
[2018-07-16] MEDS: NYSTATIN POWDER 15GM BTTL TOP SCH (09:47)
[2018-07-16] MEDS: SODIUM CHLORIDE 0.9% (FLUSH) 10 ML SYG IV SCH (09:47)
[2018-07-16] MEDS: guaiFENesin 100 MG/5 ML 10 ML UD GT SCH (09:47)
[2018-07-16 10:03] VITALS: BP 92/64; TEMP 96.8; O2SAT 96
--- NOTE | 2018-07-16 11:42 | DS ---
SUPERVISING PHYSICIAN: Radha Zepeda MD ADMISSION DIAGNOSIS: 1. Sepsis secondary to healthcare associated pneumonia versus aspiration pneumonia. 2. Diabetes mellitus type 2. 3. History of throat cancer. DISCHARGE DIAGNOSIS: 1. Sepsis secondary to healthcare associated pneumonia versus aspiration pneumonia. 2. Diabetes mellitus type 2. 3. History of throat cancer. HOSPITAL COURSE: This is a 67-year-old male patient who lives at [facility]. He has had healthcare associated pneumonia on multiple occasions with noted multi-drug resistant bacteria. His sputum has grown out MRSA in the past , Proteus in the past as well as Serratia. When he came in, he was noted to have a 2-day history of congestion. His O2 saturations got as low as 73%. He was actually sent from his previous admission on doxycycline and Levaquin. His vital signs were acceptable, but given his history of healthcare associated pneumonia, he was admitted with likely recurrence. Sputum culture was obtained on day of admission. Throughout the admission, he was given Zosyn as well as clindamycin. However, I discontinued the clindamycin due to duplicate therapy. His sputum culture remained negative and clinically the patient improved and felt really good. His white count has remained normal and he actually did have a left shift that got as high as 91% neutrophilia. This morning, it is down to 80.3. Yesterday, he had some bandemia which is not reflected on this morning's labs. Given his interval clinical improvement as well as lack of positive culture, the patient will be discharged today back to [facility]. I have written for Augmentin to be given twice a day for the next 7 days. Activity will be as tolerated. Diet as per usual diet. He will followup with his primary care provider in the next 1 to 2 weeks. #[id number] [facility]
== END 2018-07-16 11:48 | DRG 871 ==
LOC: ER 13:33 → MS 15:54
PROVIDERS: ADMIT Nurse Practitioner Acute Care; ATTEND Nurse Practitioner
DX: A41.9 Sepsis, unspecified organism (principal); J18.9 Pneumonia, unspecified organism; J69.0 Pneumonitis due to inhalation of food and vomit; E87.0 Hyperosmolality and hypernatremia; J44.0 Chronic obstructive pulmonary disease with (acute) lower respiratory infection; E87.6 Hypokalemia; K59.00 Constipation, unspecified; K21.9 Gastro-esophageal reflux disease without esophagitis; E11.9 Type 2 diabetes mellitus without complications; Y95 Nosocomial condition; Z66 Do not resuscitate; Z86.14 Personal history of Methicillin resistant Staphylococcus aureus infection; Z89.612 Acquired absence of left leg above knee; Z89.511 Acquired absence of right leg below knee; Z93.1 Gastrostomy status; Z88.3 Allergy status to other anti-infective agents; Z87.891 Personal history of nicotine dependence; Z79.1 Long term (current) use of non-steroidal anti-inflammatories (NSAID); Z79.52 Long term (current) use of systemic steroids; Z79.899 Other long term (current) drug therapy